=== PATIENT | male | born 1965 | race Hispanic/Latino ===

== ENCOUNTER 2018-04-28 08:56 | Inpatient (IN) | payer BC ==
--- NOTE | 2018-04-28 09:42 | ED PDOC ---
Arrival/HPI - General Chief Complaint: Psychiatric Evaluation Time Seen by Provider: 04/28/18 09:22 Historian: Patient - History of Present Illness Narrative History of Present Illness (Text): 04/28/18 09:39 52yo male with pmhx of depression and anxiety in ED for ED for ECT. Patient states he was advised to come to ED for ECT, when he was discharged form [facility] on April 22. He admits to SI, states he is always suicidal. He notes that he is complaint with his antidepressants. Denies hallucination and SI. Denies any somatic complaint. Past Medical History - Provider Review Nursing Documentation Reviewed: Yes - Cardiac Hx Cardiac Disorders: Yes Hx Hypertension: Yes - Endocrine/Metabolic Hx Endocrine Disorders: Yes Hx Diabetes Mellitus Type 2: Yes - Psychiatric Hx Psychophysiologic Disorder: Yes Hx Anxiety: Yes Hx Depression: Yes Hx Substance Use: No Family/Social History - Physician Review Nursing Documentation Reviewed: Yes Family/Social History: Unknown Family HX Smoking Status: Heavy Smoker > 10 Cigarettes Daily Hx Alcohol Use: Yes Frequency of alcohol use: Socially Hx Substance Use: No Allergies/Home Meds Allergies/Adverse Reactions: Allergies amitriptyline [From Elavil] Adverse Reaction (Verified 04/28/18 19:07) ITCHING Home Medications: Home Meds Medication Instructions Recorded Confirmed Atenolol 50 PO 04/28/18 GlipiZIDE [Glipizide] 10 mg PO DAILY 04/28/18 04/28/18 MetFORMIN [glucOPHAGE] 1,000 mg PO BID 04/28/18 04/28/18 Pantoprazole Sodium [Protonix] 40 mg PO DAILY 04/28/18 04/28/18 QUEtiapine [SEROquel] 300 mg PO HS 04/28/18 04/28/18 Ziprasidone [Geodon] 60 mg PO BID 04/28/18 04/28/18 Review of Systems - Physician Review All systems were reviewed & negative as marked: Yes - Review of Systems Constitutional: Normal Eyes: Normal ENT: Normal Respiratory: Normal Cardiovascular: Normal Gastrointestinal: Normal Genitourinary Male: Normal Musculoskeletal: Normal Skin: Normal Neurological: Normal Endocrine: Normal Hemo/Lymphatic: Normal Psychiatric: Depression, Suicidal Ideation Physical Exam Vital Signs Reviewed: Yes Vital Signs Temp Pulse Resp BP Pulse Ox 04/28/18 09:15 97.8 F 98 H 16 125/87 94 L Temperature: Afebrile Blood Pressure: Normal Pulse: Regular Respiratory Rate: Normal Appearance: Positive for: Well-Appearing, Non-Toxic, Comfortable Pain Distress: None Mental Status: Positive for: Alert and Oriented X 3 - Systems Exam Head: Present: Atraumatic, Normocephalic Pupils: Present: PERRL Extroacular Muscles: Present: EOMI Conjunctiva: Present: Normal Mouth: Present: Moist Mucous Membranes Neck: Present: Normal Range of Motion Respiratory/Chest: Present: Clear to Auscultation, Good Air Exchange. No: Respiratory Distress, Accessory Muscle Use Cardiovascular: Present: Regular Rate and Rhythm, Normal S1, S2. No: Murmurs Abdomen: No: Tenderness, Distention, Peritoneal Signs Back: Present: Normal Inspection Upper Extremity: Present: Normal Inspection. No: Cyanosis, Edema Lower Extremity: Present: Normal Inspection. No: Edema Neurological: Present: GCS=15, CN II-XII Intact, Speech Normal Skin: Present: Warm, Dry, Normal Color. No: Rashes Psychiatric: Present: Alert, Oriented x 3, Normal Insight, Normal Concentration Medical Decision Making ED Course and Treatment: 04/28/18 21:08 Pt was seen in ED for stated history Lab was reviewed and he was medically cleared for psychiatric evaluation He was seen in ED by STANTON Camarena and was admitted to Dr. Claudio 's service for Major depression Disposition/Present on Arrival - Present on Arrival Any Indicators Present on Arrival: No History of DVT/PE: No History of Uncontrolled Diabetes: No Urinary Catheter: No History of Decub. Ulcer: No History Surgical Site Infection Following: None - Disposition Have Diagnosis and Disposition been Completed?: Yes Diagnosis: Major depression Disposition: HOSPITALIZED Disposition Time: 11:40 Patient Plan: Admission Patient Problems: Current Active Problems Problem Status Onset Major depression Acute Condition: STABLE
[2018-04-28 09:56] LABS: BASO # 0.01 K/mm3 (0.0-2.0); BASO % 0.1 % (0.0-3.0); EOS # 0.1 (0.0-0.7); EOS % 0.8 % (1.5-5.0); GRAN # 5.58 (1.4-6.5); GRAN % 66.8 % (50.0-68.0); HEMOGLOBIN 14.6 g/dL (14.0-18.0); LYMPH # 2.3 (1.2-3.4); LYMPH % 27.5 % (22.0-35.0); MEAN CELL VOLUME 90.4 fl (80.0-105.0); MEAN CORPUSCULAR HEMOGLOBIN 30.5 pg (25.0-35.0); MEAN CORPUSCULAR HGB CONC 33.7 g/dl (31.0-37.0); MEAN PLATELET VOLUME 9.4 fl (7.0-11.0); MONO # 0.4 (0.1-0.6); MONO % 4.8 % (1.0-6.0); RBC 4.79 10^6/uL (3.5-6.1); RED CELL DISTRIBUTION WIDTH 14.1 % (11.5-14.5); WHITE BLOOD COUNT 8.4 10^3/ul (4.5-11.0)
[2018-04-28 10:02] LABS: ACETAMINOPHEN < 10.0 ug/ml (10.0-20.0); ALB/GLOB RATIO 1.6 (1.1-1.8); ALBUMIN 4.5 g/dL (3.0-4.8); ALT/SGPT 55 U/L (7-56); AST/SGOT 35 U/L (17-59); BLOOD UREA NITROGEN 18 mg/dL (7-21); CALCIUM 9.1 mg/dL (8.4-10.5); GFR NON-AFRICAN AMERICAN > 60; SALICYLATE < 1 mg/dL (2.0-20.0)
[2018-04-28 10:30] LABS: PH,URINE 5.5 (4.7-8.0); URINE BILIRUBIN NEGATIVE (NEGATIVE); URINE BLOOD NEGATIVE (NEGATIVE); URINE GLUCOSE (UA) 500 mg/dL (NEGATIVE); URINE LEUKOCYTE ESTERASE NEGATIVE Leu/uL (NEGATIVE); URINE PROTEIN TRACE mg/dL (<30 mg/dL); URINE UROBILINOGEN 0.2 E.U./dL (<1 E.U./dL)
[2018-04-28 10:46] LABS: URINE APPEARANCE CLEAR (CLEAR); URINE COLOR YELLOW (YELLOW)
[2018-04-28 10:53] LABS: BARBITURATES, UR NEGATIVE (NEGATIVE); BENZODIAZEPINES, UR POSITIVE (NEGATIVE); OPIATES, UR NEGATIVE (NEGATIVE); PHENCYCLIDINE, UR NEGATIVE (NEGATIVE)
[2018-04-28 11:12] LABS: URINE BACTERIA MOD (NEG); URINE RBC 0 - 2 /hpf (0-2)
--- NOTE | 2018-04-28 12:21 | RAD ---
Date of service: 04/28/2018 HISTORY: admission COMPARISON: No prior. FINDINGS: LUNGS: No active pulmonary disease. PLEURA: No significant pleural effusion identified, no pneumothorax apparent. CARDIOVASCULAR: Normal. OSSEOUS STRUCTURES: No significant abnormalities. VISUALIZED UPPER ABDOMEN: Normal. OTHER FINDINGS: None. IMPRESSION: No active disease.
[2018-04-28] MEDS ORDERED: Alum-Mag Hydrox-Simethicone Susp (30 mL) PO PRN (15:30)
--- NOTE | 2018-04-28 18:36 | CARD ---
APPROVED REPORT Date of service: 04/28/2018 EKG Measurement Heart [id number] <Conclusion> Normal sinus rhythm Rightward axis Low voltage QRS Borderline ECG
--- NOTE | 2018-04-28 19:00 | PN ---
DATE: 04/28/2018 CLINICAL NOTE SUBJECTIVE: The patient is in the Behavioral Care Unit. The patient is in room 518, bed 1. The patient was admitted today. Diagnosis is depression. The patient has been treated for depression for the last 5 years. He says he has been retired from . His past history is significant that he has history of diabetes, hypertension. The patient has history of alcoholism. He drinks a pint of vodka everyday. He smokes also. His past history includes ventral hernia, right side of the lower abdomen. The patient has history of gastritis. He says that he has been on Protonix in the past. His medication list consists of Ativan 1 mg every 6 hours. The patient is on magnesium hydroxide for constipation. He gets Seroquel 100 mg at night. The patient is on thiamine and vitamin D1. His lab work, the blood sugar is 235. His magnesium of 1.5, it is low. The patient's urine, there is evidence of sugar in the urine. PHYSICAL EXAMINATION: HEENT: The patient's head is normocephalic. GENERAL: Seemed to be pleasant. NECK: Thyroid is not enlarged clinically. HEART: Normal sinus rhythm. S1 and S2 present. LUNGS: Trachea central. Breath sounds vesicular. No adventitious sounds heard. ABDOMEN: Soft, distended. Liver and spleen not clinically palpable. SIGNING AGENT: No focal deficits are noted. LABORATORY DATA: The patient's blood work, the hemoglobin is 14.6. His differential is normal. Chemistry: The patient's sugar is 235. His magnesium of 1.5 which is low. GFR is within normal limits. He has pending x-ray of the chest. The patient's EKG shows nonspecific ST-T wave changes. At this time, we will cover the patient with insulin and check his lipid levels and monitor his sugar and also his blood pressure. At this point, his blood pressure seems to be within normal range, but since the patient is a diabetic, he needs to take an KAYKAY inhibitor or ARB. We will place the patient on a medication and follow up. Kenyon Decker MD [facility] # [id number] MTDD
--- NOTE | 2018-04-28 19:07 | PCM.BM ---
<Preethi Reyes - Last Filed: 04/28/18 19:04> Treatment Plan Problems - Problems identified on initial assessmt INEFFECTIVE INDV COPING Date Initiated: 04/28/18 Time Initiated: 19:00 Assessment reference: NA Status: Active Priority: 1 HOPELESS/HELPLESS Date Initiated: 04/28/18 Time Initiated: 19:00 Assessment reference: NA Status: Active Priority: 2 FEELING WORTHLESS Date Initiated: 04/28/18 Time Initiated: 19:00 Assessment reference: NA Status: Active Priority: 3 ALTERATION IN SLEEP Date Initiated: 04/28/18 Time Initiated: 19:00 Assessment reference: NA Status: Active Priority: 4 KNOWLEDGE DEFICIT ALCOHOL USE Date Initiated: 04/28/18 Time Initiated: 19:00 Assessment reference: NA Status: Active Priority: 5 Treatment assets and liabiliti Patient Assests: cooperative, ADL independent, good support system, cognitively intact Patient Liabilities: substance abuse - Milieu Protocol Maintain good personal hygiene: every shift Encourage regular showers, every shift Remind patient to perform daily oral care, every shift Assist patient to perform ADL's Maintain personal safety: every other day Educate patient to report safety concerns to staff, every other day Monitor environment for contraband/sharps Medication safety: Monitor for expected outcome, potential side effects: every other day, Assess barriers to learning: every other day, Assess readiness for medication education: every other day Discharge/Continuing Care - Education Needs Education Needs: Patient Medication, Patient Diagnosis/Disease Process, Patient Coping Skills, Patient Community resources, Patient Activities of Daily Living, Patient Nutrition, Patient Uses of Medical Equipment, Patient Health Practices/Safety, Patient Personal Hygiene/Grooming, Patient Aftercare Safety Plan - Discharge Discharge Criteria: Tolerates medication w/o severe side effects, Free of agitation, Normal sleep pattern, Ability to care for self, No longer exhibiting s/s of withdrawal, Reduction of target symptoms Discharge to:: Home <Rita Hoffman - Last Filed: 04/30/18 15:37> Family Contact Family involvement: Family/SO is involved Family contact: Patient agrees to contact Family contact name: Leticia Gonzalez() Family contacted how many times per week?: 2
[2018-04-28] MEDS: Insulin Detemir 100 units/ml Vial (Levemir) SC SCH (21:26)
[2018-04-28] MEDS: Insulin Reg-LOW-Coverage SC SCH (21:26)
[2018-04-29] MEDS: Insulin Reg-LOW-Coverage SC SCH ×4 (08:20→21:16)
--- NOTE | 2018-04-29 08:55 | PN ---
DATE: 04/28/2018 SUBJECTIVE: The patient is in the Behavioral Care Unit under the care of the behavioral care physician, Dr. Shanon Lazo. The patient was admitted with depression and was seen this morning. He seemed to be comfortable. He does not feel very disturbed at this moment. The patient is waiting to have ECT evaluation and treatment. PHYSICAL EXAMINATION: VITAL SIGNS: This morning, the patient's pulse is 77, blood pressure 150/97, respirations are 20, the patient's temperature 97.3. HEENT: The patient's examination of the head is normocephalic. LUNGS: Clear. HEART: Normal sinus rhythm. S1, S2 present. ABDOMEN: Soft. Liver and spleen not palpable. No tenderness. Distention is present. COST AND RISK ANALYSIS MANAGER: No focal deficits are noted. MEDICATIONS: The patient's medications are placed. At this time, the patient is on metformin 1000 mg b.i.d., glipizide 10 mg daily, insulin coverage with Levemir 40 units at night. The patient gets insulin coverage four times a day for elevated blood sugar. The patient is on Ativan 1 mg every 6 hours. The patient is getting magnesium oxide 400 mg b.i.d. because he had low magnesium level in the blood. The patient is also getting Seroquel 100 mg at night. Diet is 2 g sodium diabetic diet. The patient also gets atenolol 50 mg daily. LABORATORY DATA: The blood work done yesterday in the lab, the CBC was within normal range. The patient's chemistry, the blood sugar was elevated. Magnesium of 1.5. ASSESSMENT AND PLAN: We will continue current medical management and we will wait for the Behavioral Care Unit physician to schedule the patient for ECT. Kenyon Decker MD [facility]RA[facility]
[2018-04-29] MEDS: Multivitamin Therapeutic Tab PO SCH (09:12)
[2018-04-29] MEDS: Magnesium Oxide 400 mg Tab UD PO SCH (09:12)
[2018-04-29] MEDS: Pantoprazole 40 mg EC Tab PO SCH (09:13)
[2018-04-29] MEDS: Insulin Detemir 100 units/ml Vial (Levemir) SC SCH (21:16)
[2018-04-30] MEDS: Magnesium Oxide 400 mg Tab UD PO SCH (08:39)
[2018-04-30] MEDS: Pantoprazole 40 mg EC Tab PO SCH (08:39)
[2018-04-30] MEDS: Insulin Reg-LOW-Coverage SC SCH ×4 (08:40→22:17)
[2018-04-30] MEDS: Multivitamin Therapeutic Tab PO SCH (08:40)
--- NOTE | 2018-04-30 11:07 | PN ---
DATE: 04/30/2018 SUBJECTIVE: The patient is in Behavioral Care Unit room 518, bed 1. He was admitted with depression. He is being managed medically for diabetes and hypertension and for depression, the patient is being monitored and treated by the Behavioral Care physician. The patient has been scheduled for ECT, but the date is not planned yet. PHYSICAL EXAMINATION: VITAL SIGNS: The pulse is 76, blood pressure 110/70, respirations are 20. The patient's O2 sat is 98% on oxygen on room air. HEENT: The patient's head is normocephalic. NECK: The thyroid is not enlarged. JVP is flat. HEART: Normal sinus rhythm. S1, S2 present. LUNGS: Trachea central. Breath sounds vesicular, no adventitious sounds. ABDOMEN: Soft, obesity present. EDGE GLUE MACHINE TENDER: The patient is conscious/well oriented. No focal neurologic deficits are noted. The patient is able to ambulate. His cerebellar functions are within normal limits. LABORATORY DATA: The patient's blood work shows white count of 8000, otherwise the peripheral smear was 9000. Chemistry: The patient's blood sugar today is 199. MEDICATIONS: His list of medications consist of Ativan 4 times a day. The patient gets folic acid, metformin, glipizide, insulin coverage, magnesium oxide. The patient is on Seroquel, atenolol and multivitamin. His diet is heart-healthy diabetic diet. ASSESSMENT: The patient's condition is stable, though he has acute depression. His EKG shows normal sinus rhythm with nonspecific ST-T wave changes, low voltage QRS. The patient's chest x-ray is clear. PLAN: The patient is cleared for ECT when it is planned for the time according to the Behavioral Care Unit. Kenyon Decker MD MTDD
--- NOTE | 2018-04-30 16:25 | PCM.PYCHPN ---
Psychiatric Progress Note - Psychiatric Progress Note Patient seen today, length of contact: 30 minutes Patient Chief Complaint: "I need to have ECT, I came here for that" Problems Identified/Issues Discussed: Suicide/ homicide prevention, past psychiatric h/o, current psychiatric symptoms, medical problems, risk/benefits and alternatives of medications, medications compliance, coping strategies, substance abuse h/o, relapse prevention, importance of follow up with psychiatrist and therapist, discharge plan. Medical Problems: see HPI Diagnostic Results: 04/28/18 09:30 04/28/18 09:30 Lab Results 04/30/18 07:22: POC Glucose (mg/dL) 172 H 04/29/18 21:09: POC Glucose (mg/dL) 199 H 04/29/18 16:29: POC Glucose (mg/dL) 215 H 04/29/18 11:05: POC Glucose (mg/dL) 221 H 04/29/18 07:19: POC Glucose (mg/dL) 140 H 04/28/18 21:13: POC Glucose (mg/dL) 263 H 04/28/18 16:33: POC Glucose (mg/dL) 224 H 04/28/18 10:20: Urine Opiates Screen Negative, Urine Methadone Screen Negative, Ur Barbiturates Screen Negative, Ur Phencyclidine Scrn Negative, Ur Amphetamines Screen Negative, U Benzodiazepines Scrn Positive H, U Oth Cocaine Metabols Negative, U Cannabinoids Screen Negative 04/28/18 10:20: Urine Color Yellow, Urine Appearance Clear, Urine pH 5.5, Ur Specific [place] >= 1.030, Urine Protein Trace H, Urine Glucose (UA) 500 H, Urine Ketones 15 H, Urine Blood Negative, Urine Nitrate Negative, Urine Bilirubin Negative, Urine Urobilinogen 0.2, Ur Leukocyte Esterase Negative, Urine RBC 0 - 2, Urine WBC 1 - 3, Urine Bacteria Mod 04/28/18 09:30: Alcohol, Quantitative 134 H 04/28/18 09:30: Salicylates < 1 L, Acetaminophen < 10.0 L 04/28/18 09:30: Sodium 139, Potassium 4.0, Chloride 99, Carbon Dioxide 25, Anion Gap 19, BUN 18, Creatinine 0.9, Est GFR ( Amer) > 60, Est GFR (Non-Af Amer) > 60, Random Glucose 235 H, Calcium 9.1, Magnesium 1.5 L, Total Bilirubin 0.3, AST 35, ALT 55, Alkaline Phosphatase 74, Total Protein 7.3, Albumin 4.5, Globulin 2.8, Albumin/Globulin Ratio 1.6 04/28/18 09:30: WBC 8.4, RBC 4.79, Hgb 14.6, Hct 43.3, MCV 90.4, MCH 30.5, MCHC 33.7, RDW 14.1, Plt Count 309, MPV 9.4, Gran % 66.8, Lymph % (Auto) 27.5, [place] % (Auto) 4.8, Eos % (Auto) 0.8 L, Baso % (Auto) 0.1, Gran # 5.58, Lymph # (Auto) 2.3, [place] # (Auto) 0.4, Eos # (Auto) 0.1, Baso # (Auto) 0.01 Vital Signs Temp Pulse Resp BP Pulse Ox 04/30/18 07:29 97.7 F 76 20 111/69 04/29/18 16:00 74 139/92 H 04/29/18 09:13 77 150/97 H 04/29/18 09:11 77 150/97 H 04/29/18 07:00 97.3 F L 77 20 150/97 H 04/28/18 15:42 17 04/28/18 13:45 96 04/28/18 13:40 90 17 128/80 96 04/28/18 12:53 88 16 125/78 96 04/28/18 11:27 90 16 127/80 96 04/28/18 10:00 94 H 17 126/85 96 04/28/18 09:15 97.8 F 98 H 16 125/87 94 L DSM 5 Symptoms Update: shortly pt is 25yo male with reported h/o schizoaffective disorder, bipolar type, h/o alcohol use disorder, h/o multiple previous psychiatric admissions (most recent was [facility] in 04/22/2018, [place] [facility] [place] worsening of his depression, suicidal ideation, pt made a request for ECT treatment, prior to this admission pt had a plan to overdose on pills, pt's called [facility] and find out that ECT treatment available in this Hospital. pt was seen at the treatment team meeting, pt presented with poor personal hygiene, acceptable ADLs. pt was seen and examined, previous record reviewed, pt's med list discussed with pt. pt was recently d/c from the [facility] on 04/22/2018, pt reported not feeling any better, pt reported to feel depressed and "always feeling suicidal". Denies any homicidal ideation or A/V/H. Poor sleep, fair appetite. Pt reported that he was "not drinking that much", at the same time alcohol level was elevated in ED. pt was prescribed the following meds: Atenolol 10 mg PO BID 03/30/18 Lantus 45 units SQ DAILY 03/30/18 MetFORMIN 1,000 mg PO BID 03/30/18 Simvastatin 40 mg PO DAILY 03/30/18 QUEtiapine [Seroquel] 300 mg PO HS #30 tab 04/03/18 Ziprasidone [Geodon Cap] 80 mg PO BID #60 cap 04/03/18 pt reported being compliant wiht meds. pt tavares multiple psych admissions to [facility], h/o of suicidal attempts most recent was prior [facility] Hospitalization. pt contracted for safety. reported h/o smoking about 1-1/2 pack a day, refused nicotine patch, but offered PRN. Impression: as per h/o: schizoaffective, bipolar type r/o substance induced mood disorder h/o alcohol abuse/dependence Medication Change: Yes (seroquel increased) Medical Record Reviewed: Yes Consults ordered or reviewed: medical team evaluated pt Mental Status Examination - Cognitive Function Orientation: Person, Place, Situation Memory: Intact Attention: Poor Concentration: Poor Association: Loose Fund of Knowledge: Poor - Mood Mood: Depressed, Anxious - Affect Affect: Constricted - Speech Speech: Appropriate - Formal Thought Process Formal Thought Process: No Impairment - Suicidal Ideation Suicidal Ideation: Yes Plan: no intent, pt contracted for safety - Homicidal Ideation Homicidal Ideation: No Goal/Treatment Plan - Goal/Treatment Plan Need for Continued Stay: Remain at risks for inpatient hospitalization, Severe depression anxiety, Discharge may exacerbated symptoms, Failed transitioning, Severe functional impairment Progress Toward Problem(s) and Goals/Treatment Plan: Milieu/structure/supportive therapy Medical consult appreciated, see medical team note for more detailed info SW consultation for discharge plan and social issues Med management seroquel resumed ativan 1mg po qid scheduled MVI/thiamine/folic acid Family involvement Follow up on labs Will monitor closely Pt was educated about risk/benefits and alternatives of medications, coping strategies (safety plan, suicide prevention), relapse prevention, importance of follow up with psychiatrist and therapist, stay away from drugs/alcohol/smoking Estimated Date of D/C: 05/05/18
[2018-04-30] MEDS: Insulin Detemir 100 units/ml Vial (Levemir) SC SCH (21:41)
--- NOTE | 2018-05-01 08:36 | PN ---
DATE: 05/01/2018 SUBJECTIVE: The patient is in the Behavioral Care Unit. The patient was admitted with depression, pending ECT treatment. The patient has past history of diabetes, hypertension and also chronic alcoholism. According to his story, he says he drinks a pint of vodka everyday. PHYSICAL EXAMINATION: GENERAL: This morning, he is awake. He says that he does not sleep, but according to the nurse, the patient sleeps pretty well. VITAL SIGNS: Pulse is 77, blood pressure 105/54, respirations are 20, O2 sat is 98% on room air. HEENT: Examination of the head is normocephalic. NECK: The thyroid is not enlarged. Carotid pulses are present. LUNGS: Trachea central. Breath sounds vesicular. No adventitious sounds. HEART: Normal sinus rhythm. S1 and S2 present. ABDOMEN: Soft. Liver and spleen not palpable. COMMUNITY HEALTH AGENT: He has no focal neurological deficit. MEDICATIONS: His list of medications consist of Ativan, folic acid, metformin, glipizide, insulin coverage, magnesium oxide. The patient is on pantoprazole, Seroquel and Tenormin. LABORATORY DATA: His blood work, the patient's blood sugar was 225 and he is on insulin coverage for elevated blood sugar, but he is on multiple hypocalcemic agents and a diabetic diet. ASSESSMENT AND PLAN: We will continue current management. We will follow up. Kenyon Decker MD MTDMarion
[2018-05-01] MEDS: Insulin Reg-LOW-Coverage SC SCH ×4 (08:55→22:18)
[2018-05-01] MEDS: Multivitamin Therapeutic Tab PO SCH (08:58)
[2018-05-01] MEDS: Pantoprazole 40 mg EC Tab PO SCH (08:59)
[2018-05-01] MEDS: Magnesium Oxide 400 mg Tab UD PO SCH (09:01)
[2018-05-01 09:46] LABS: BLOOD UREA NITROGEN 15 mg/dL (7-21); CALCIUM 9.4 mg/dL (8.4-10.5); GFR NON-AFRICAN AMERICAN > 60
--- NOTE | 2018-05-01 10:38 | HP ---
HISTORY OF PRESENT ILLNESS: The patient is a 52-year-old white male with a reported past history of depression and anxiety who was transferred from [facility] for consideration of ECT. He had been discharged from [facility] on 04/22/2018. The patient indicated that he is presently suicidal as he is always suicidal, but is somewhat vague about a plan. It was observed that he is compliant with his antidepressants. The patient's medical history is positive for diabetes. He has been maintained on glipizide 10 mg daily, metformin 1000 mg b.i.d., also Protonix 40 mg daily, atenolol 50 mg daily, Seroquel 300 mg at bedtime and Geodon 60 mg b.i.d. The patient does appear to be alert, oriented, slightly anxious, soft spoken, depressed, not psychotic. He does express feelings of being lonely and not having control over his life and avoidant of people. The patient does indicate that he drinks alcohol for a long time. His treatment for this is unsure. The patient indicates that his father is a source of support to him. The patient indicated that he has been under psychiatric care for his depression for 5 years. His past medical history is significant for diabetes, hypertension and alcoholism. He indicated that he drank a pint of vodka every day for an extended period of time and has smoked. He has also had a history of an abdominal ventral hernia and a history of gastritis. His CBC and differential were within normal limits. A urine toxicology screen was positive for benzodiazepines, for a blood alcohol level of 134 mg percent. Urinalysis showed trace protein, 500 urine glucose, 15 urine ketones. A biochemical profile shows elevated glucose of 215 mg percent. DIAGNOSES: Alcohol use disorder; depression, not otherwise specified, possibly secondary to chronic alcohol use. The patient apparently has been admitted for consideration of ECT. Review of systems was normal for 10 systems. PHYSICAL EXAMINATION: HEENT: The patient was normocephalic. Pupils equal, round and reactive to light and accommodation. Mouth moist, no masses, no exudates. NECK: Supple, no jugular vein distention. RESPIRATORY: Clear to auscultation and percussion. Good air exchange. CARDIOVASCULAR: Heart, regular rate and rhythm. S1/S2. No murmurs. No gallops. ABDOMEN: Soft. No organomegaly. No tenderness. GENITALIA: Deferred. EXTREMITIES: Symmetric, pedal pulses present. NEUROLOGIC: Cranial nerves II to XII grossly intact, speech normal. SKIN: Warm and dry. IMPRESSION: The patient for treatment of depression. Mckinley Bhandari MD/ PhD
--- NOTE | 2018-05-01 16:18 | PCM.PYCHPN ---
Psychiatric Progress Note - Psychiatric Progress Note Patient seen today, length of contact: 30 minutes Patient Chief Complaint: "I need to have ECT, I came here for that, I am very hopeless" Problems Identified/Issues Discussed: Suicide/ homicide prevention, past psychiatric h/o, current psychiatric symptoms, medical problems, risk/benefits and alternatives of medications, medications compliance, coping strategies, substance abuse h/o, relapse prevention, importance of follow up with psychiatrist and therapist, discharge plan. Medical Problems: see HPI Diagnostic Results: 04/28/18 09:30 04/28/18 09:30 Lab Results 04/30/18 07:22: POC Glucose (mg/dL) 172 H 04/29/18 21:09: POC Glucose (mg/dL) 199 H 04/29/18 16:29: POC Glucose (mg/dL) 215 H 04/29/18 11:05: POC Glucose (mg/dL) 221 H 04/29/18 07:19: POC Glucose (mg/dL) 140 H 04/28/18 21:13: POC Glucose (mg/dL) 263 H 04/28/18 16:33: POC Glucose (mg/dL) 224 H 04/28/18 10:20: Urine Opiates Screen Negative, Urine Methadone Screen Negative, Ur Barbiturates Screen Negative, Ur Phencyclidine Scrn Negative, Ur Amphetamines Screen Negative, U Benzodiazepines Scrn Positive H, U Oth Cocaine Metabols Negative, U Cannabinoids Screen Negative 04/28/18 10:20: Urine Color Yellow, Urine Appearance Clear, Urine pH 5.5, Ur Specific [place] >= 1.030, Urine Protein Trace H, Urine Glucose (UA) 500 H, Urine Ketones 15 H, Urine Blood Negative, Urine Nitrate Negative, Urine Bilirubin Negative, Urine Urobilinogen 0.2, Ur Leukocyte Esterase Negative, Urine RBC 0 - 2, Urine WBC 1 - 3, Urine Bacteria Mod 04/28/18 09:30: Alcohol, Quantitative 134 H 04/28/18 09:30: Salicylates < 1 L, Acetaminophen < 10.0 L 04/28/18 09:30: Sodium 139, Potassium 4.0, Chloride 99, Carbon Dioxide 25, Anion Gap 19, BUN 18, Creatinine 0.9, Est GFR ( Amer) > 60, Est GFR (Non-Af Amer) > 60, Random Glucose 235 H, Calcium 9.1, Magnesium 1.5 L, Total Bilirubin 0.3, AST 35, ALT 55, Alkaline Phosphatase 74, Total Protein 7.3, Albumin 4.5, Globulin 2.8, Albumin/Globulin Ratio 1.6 04/28/18 09:30: WBC 8.4, RBC 4.79, Hgb 14.6, Hct 43.3, MCV 90.4, MCH 30.5, MCHC 33.7, RDW 14.1, Plt Count 309, MPV 9.4, Gran % 66.8, Lymph % (Auto) 27.5, [place] % (Auto) 4.8, Eos % (Auto) 0.8 L, Baso % (Auto) 0.1, Gran # 5.58, Lymph # (Auto) 2.3, [place] # (Auto) 0.4, Eos # (Auto) 0.1, Baso # (Auto) 0.01 Vital Signs Temp Pulse Resp BP Pulse Ox 04/30/18 07:29 97.7 F 76 20 111/69 04/29/18 16:00 74 139/92 H 04/29/18 09:13 77 150/97 H 04/29/18 09:11 77 150/97 H 04/29/18 07:00 97.3 F L 77 20 150/97 H 04/28/18 15:42 17 04/28/18 13:45 96 04/28/18 13:40 90 17 128/80 96 04/28/18 12:53 88 16 125/78 96 04/28/18 11:27 90 16 127/80 96 04/28/18 10:00 94 H 17 126/85 96 04/28/18 09:15 97.8 F 98 H 16 125/87 94 L DSM 5 Symptoms Update: shortly pt is 25yo male with reported h/o schizoaffective disorder, bipolar type, h/o alcohol use disorder, h/o multiple previous psychiatric admissions (most recent was [facility] in 04/22/2018, pt came to the [facility] c/o worsening of his depression, suicidal ideation, pt made a request for ECT treatment, prior to this admission pt had a plan to overdose on pills, pt's called [facility] and find out that ECT treatment available in this Hospital. pt was seen in his room, patient presented to be irritable, annoyed, patient was asked about ECT treatment, off note ECT machine needed to be replaced by the [employer] due to inability to save the record. pt reported to be depressed and hopeless. Patient reported previous good response on Celexa, willing to resume that medication. pt presented with poor personal hygiene, acceptable ADLs. pt tavares multiple psych admissions to [facility], h/o of suicidal attempts most recent was prior [facility]. pt contracted for safety. As per staff, patient is self isolating, depressed, irritable and paranoid, but no agitation or aggression. Impression: as per h/o: schizoaffective, bipolar type r/o substance induced mood disorder h/o alcohol abuse/dependence Medication Change: Yes (seroquel increased, ativan decreased) Medical Record Reviewed: Yes Consults ordered or reviewed: medical team evaluated pt pulmonology evaluated patient, patient needs to be on nebulizer as well as CPAP machine Mental Status Examination - Cognitive Function Orientation: Person, Place, Situation Memory: Intact Attention: Poor Concentration: Poor Association: Loose Fund of Knowledge: Poor - Mood Mood: Depressed, Anxious - Affect Affect: Constricted - Speech Speech: Appropriate - Formal Thought Process Formal Thought Process: No Impairment - Suicidal Ideation Suicidal Ideation: Yes - Homicidal Ideation Homicidal Ideation: No Goal/Treatment Plan - Goal/Treatment Plan Need for Continued Stay: Remain at risks for inpatient hospitalization, Severe depression anxiety, Discharge may exacerbated symptoms, Failed transitioning, Severe functional impairment Progress Toward Problem(s) and Goals/Treatment Plan: Milieu/structure/supportive therapy Medical consult appreciated, see medical team note for more detailed info SW consultation for discharge plan and social issues Med management seroquel resumed ativan 1mg po tid scheduled, ith the plan to wean it off Celexa was started 10 mg daily for depression and anxiety Possible ECT treatment next week MVI/thiamine/folic acid Family involvement Follow up on labs Will monitor closely Pt was educated about risk/benefits and alternatives of medications, coping strategies (safety plan, suicide prevention), relapse prevention, importance of follow up with psychiatrist and therapist, stay away from drugs/alcohol/smoking Estimated Date of D/C: 05/05/18
[2018-05-01] MEDS ORDERED: Albuterol HFA 90 mcg/actuation (8 g) IH PRN (21:18)
[2018-05-01] MEDS: Insulin Detemir 100 units/ml Vial (Levemir) SC SCH (22:18)
[2018-05-02] MEDS: Fluticasone-Salmeterol 500-50mcg Diskus INH SCH ×2 (08:00→18:26)
[2018-05-02] MEDS: Insulin Reg-LOW-Coverage SC SCH ×4 (08:29→21:56)
--- NOTE | 2018-05-02 08:40 | CON ---
DATE: 05/01/2018 REFERRING PHYSICIAN: Dr. Claudio. REASON FOR CONSULTATION: Chronic obstructive lung disease and obstructive sleep apnea syndrome. HISTORY OF PRESENT ILLNESS: This is a 52-year-old gentleman with past medical history of depression/anxiety disorder. He claimed he is suicidal. Denied any hallucination. Does have some cough, active smoker. Claimed that he has sleep apnea syndrome, has CPAP at home, does not know exact pressures, has a loud snoring, daytime sleepy and tired. PAST MEDICAL HISTORY: Major depression/anxiety disorder, chronic lung disease, sleep apnea syndrome, obesity, hypertension, diabetes. FAMILY HISTORY: No significant cardiopulmonary disease reported. SOCIAL HISTORY: Positive history of smoking. Does drink alcohol excessively. No substance abuse. ALLERGIES: AMITRIPTYLINE. MEDICATIONS: He is on lorazepam 1 mg three times a day, Celexa 10 mg daily, folic acid 1 mg daily, metformin 1000 mg twice a day, glipizide 10 mg daily, Levemir 40 units subcu at bedtime, Maalox 30 mg daily p.r.n., Mag oxide 400 mg daily, Protonix 40 mg daily, Seroquel 300 mg at bedtime, atenolol 50 mg daily, multivitamins daily, Zestril 2.5 mg daily. REVIEW OF SYSTEMS: No headache. No rhinitis. Does have some cough and shortness of breath with exertion. No chest pain. No nausea, no vomiting, no diarrhea, leg pain or leg swelling. Admits to have snoring, daytime sleepy and tired. PHYSICAL EXAMINATION: GENERAL: Sitting up in a chair, in no acute distress. VITAL SIGNS: Temperature is 98, heart rate 77, respiratory rate is 20, blood pressure 135/91. HEENT: Moist mucous membranes. Small oral cavity. Edentulous. Mallampati score is 4. NECK: Short, thick neck. LUNGS: Have scattered rhonchi, prolonged expiratory phase. HEART: S1 and S2. ABDOMEN: Soft, nontender, nondistended. EXTREMITIES: No edema. NEUROLOGIC: Awake and follows simple commands. LABORATORY DATA: Shows hemoglobin 14.6, hematocrit 43.3, WBC 8.4, platelet is 309,000. Sodium 135, potassium 4.2, chloride 98, bicarbonate 28, BUN 15, creatinine 0.9, glucose 227, calcium is 9.4, magnesium 1.4. Had chest x-ray done in emergency room, shows no active pulmonary disease. IMPRESSION AND PLAN: Probably schizoaffective disorder, chronic obstructive lung disease, sleep apnea syndrome, morbid obesity. Case discussed with Dr. Claudio, spoke to nursing staff. We will place him on CPAP 8 cm while sleeping. We will add inhaled bronchodilator. Continue gastric prophylaxis. Urged him to stop smoking. Continue therapy. Thank you and we will follow with you. Braden Corley MD
[2018-05-02] MEDS: Multivitamin Therapeutic Tab PO SCH (08:41)
[2018-05-02] MEDS: Pantoprazole 40 mg EC Tab PO SCH (08:41)
[2018-05-02] MEDS: Magnesium Oxide 400 mg Tab UD PO SCH (08:41)
--- NOTE | 2018-05-02 09:57 | PCM.PYCHPN ---
Psychiatric Progress Note - Psychiatric Progress Note Patient seen today, length of contact: 30 minutes Problems Identified/Issues Discussed: I reviewed assessment and recent notes. Patient was interviewed at bedside. He is superficially cooperative, affect is constricted, mildly irritable but generally respectful. He reports continued depression, fatigue anxiety "always there". He is still agreeable to start ECT and remains aware of his current psychiatric medication regimen when reviewed this morning. Denies any side effects or new discomfort or pain. Staff note that patient can be isolative at times but has been more visible and attending groups. There were no behavioral issues overnight. Diagnostic Results: as per h/o: schizoaffective, bipolar type r/o substance induced mood disorder h/o alcohol abuse/dependence Medication Change: Yes (Ativan decreased to 1 mg AM/HS ) Medical Record Reviewed: Yes Mental Status Examination - Cognitive Function Orientation: Person, Place, Situation Memory: Intact Attention: WNL Concentration: Poor Association: Loose Fund of Knowledge: Poor - Mood Mood: Depressed, Anxious - Affect Affect: Constricted - Speech Speech: Appropriate - Formal Thought Process Formal Thought Process: No Impairment - Suicidal Ideation Suicidal Ideation: No - Homicidal Ideation Homicidal Ideation: No Goal/Treatment Plan - Goal/Treatment Plan Need for Continued Stay: Remain at risks for inpatient hospitalization, Severe depression anxiety, Discharge may exacerbated symptoms, Failed transitioning, Severe functional impairment Progress Toward Problem(s) and Goals/Treatment Plan: * c/w current tx and plan * Ativan taper to 1 mg AMHS today * No new lab results thus far this weekend * Vitals reviewed and noted below: Selected Entries 05/01/18 05/01/18 05/01/18 07:43 16:30 23:00 Temperature 97.9 F Pulse Rate 77 76 76 Respiratory 20 Rate Blood Pressure 105/54 L 135/91 H Estimated Date of D/C: 05/05/18
--- NOTE | 2018-05-02 13:04 | PN ---
DATE: 05/02/2018 SUBJECTIVE: Patient is seen in Behavioral Care Unit, [facility] in [place], room 518, bed 1. Patient admitted with depression, pending ECT treatment. Patient is on multiple medications. Patient is seen this morning. He seems to be lying in bed comfortably. He answers all the questions. He says he is tired. PHYSICAL EXAMINATION: VITAL SIGNS: Patient's pulse is 92, blood pressure 113/63, respirations are 19 per minute. HEENT: Patient's head is normocephalic. LUNGS: Clear. HEART: Normal sinus rhythm. S1, S2 present. ABDOMEN: Soft. Liver and spleen not palpable. CENTRAL NERVOUS SYSTEM: no focal deficits. LIST OF MEDICATIONS: Patient has Advair for chronic obstructive lung disease. Patient is on Ativan 1 mg three times a day. Patient is on Celexa 10 mg daily, Folic acid 1 mg daily. He is on metformin 1000 mg b.i.d., glipizide 10 mg daily, insulin coverage for elevated blood sugar. Patient is also on magnesium oxide, pantoprazole. Patient gets quetiapine which is Seroquel 300 mg at night, atenolol 50 mg daily, lisinopril 2.5 mg daily and thiamine 100 mg daily. He is also on Ventolin inhalation therapy. Kenyon Decker MD MTDMarion
[2018-05-02] MEDS: Insulin Detemir 100 units/ml Vial (Levemir) SC SCH (21:56)
--- NOTE | 2018-05-03 00:37 | PN ---
DATE: 05/02/2018 PULMONARY PROGRESS NOTE REFERRING PHYSICIAN: Shanon Lazo MD. SUBJECTIVE: The patient feels okay, tolerated CPAP last night. No overnight events reported. No headache, chest pain, nausea, vomiting, leg pain, leg swelling reported. PHYSICAL EXAMINATION: VITAL SIGNS: Temperature 98.1, pulse 92, respirations 19, blood pressure 113/63. GENERAL: No acute distress. HEENT: Moist mucous membrane. Crowded airway. Mallampati score is 4. NECK: Short, thick. No JVD. LUNGS: Scattered rhonchi. CARDIAC: S1 and S2. ABDOMEN: Soft, nontender. No organomegaly. EXTREMITIES: No edema. NEUROLOGICAL: Awake, alert. Follows commands. LABORATORY DATA: Laboratory results reviewed. No new data. Bedside glucose 199. No other data reviewed. MEDICATIONS: Reviewed. Ativan 1 mg in the morning and nighttime, citalopram 10 mg daily, Advair one puff every 12 hours. No other changes since yesterday. IMPRESSION AND PLAN: Schizoaffective disorder, chronic obstructive lung disease, sleep apnea syndrome, morbid obesity, suicidal ideation. Continue to encourage CPAP while sleeping, keep head elevated at 45-degrees, inhale bronchodilators, gastric prophylaxis, smoking cessation, therapy as tolerated. This patient was examined with Dr. Corley and discussed assessment and plan as described above. Thank you for this consult and we will follow with you. Shreya Mcdonald APN Braden Corley MD
[2018-05-03] MEDS: Magnesium Oxide 400 mg Tab UD PO SCH ×2 (08:32→16:22)
[2018-05-03] MEDS: Pantoprazole 40 mg EC Tab PO SCH (08:33)
[2018-05-03] MEDS: Insulin Reg-LOW-Coverage SC SCH ×4 (08:33→21:24)
[2018-05-03] MEDS: Multivitamin Therapeutic Tab PO SCH (08:33)
[2018-05-03] MEDS: Fluticasone-Salmeterol 500-50mcg Diskus INH SCH ×2 (08:36→17:28)
--- NOTE | 2018-05-03 09:44 | PCM.PYCHPN ---
Psychiatric Progress Note - Psychiatric Progress Note Patient seen today, length of contact: 30 minutes Problems Identified/Issues Discussed: I reviewed recent notes and patient was interviewed at bedside again this morning. He remains oriented x3 and superficially cooperative with interview q uestions. Utilized BIPAP last night and feels that he slept better. He reports continued depression, fatigue and anxiety. States that he always has these symptoms. Affect remains constricted, mildly irritable but generally respectful. Appearance is unkempt. Patient remains agreeable to start ECT. Denies any side effects or new discomfort or pain. Staff note that patient can be isolative at times but has been more visible on the unit. He attends and participates in groups. There were no behavioral issues over the weekend thus far. Diagnostic Results: as per h/o: schizoaffective, bipolar type r/o substance induced mood disorder h/o alcohol abuse/dependence Medication Change: Yes (Ativan decreased to 1 mg AM/HS on 05/02/18) Medical Record Reviewed: Yes Mental Status Examination - Cognitive Function Orientation: Person, Place, Situation Memory: Intact Attention: WNL Concentration: Poor Association: Loose Fund of Knowledge: Poor - Mood Mood: Depressed, Anxious - Affect Affect: Constricted - Speech Speech: Appropriate - Formal Thought Process Formal Thought Process: No Impairment - Suicidal Ideation Suicidal Ideation: No - Homicidal Ideation Homicidal Ideation: No Goal/Treatment Plan - Goal/Treatment Plan Need for Continued Stay: Remain at risks for inpatient hospitalization, Severe depression anxiety, Discharge may exacerbated symptoms, Failed transitioning, Severe functional impairment Progress Toward Problem(s) and Goals/Treatment Plan: * c/w current tx and plan * Appreciate f/u by Dr. Mcdonald/Jory and Dr. Decker on 05/02/18~no new recommendations * Ativan tapered to 1 mg AMHS on 05/02/18 * No new lab results thus far this weekend * Vitals reviewed and noted below: Selected Entries 05/02/18 05/02/18 06:55 20:28 Temperature 98.1 F Pulse Rate 92 H 82 Respiratory 19 Rate Blood Pressure 113/63 106/63 Estimated Date of D/C: 05/05/18
--- NOTE | 2018-05-03 13:17 | PN ---
DATE: 05/03/2018 SUBJECTIVE: Patient is seen in [facility] Behavioral Care Unit in room 518, bed 1. Patient was admitted with depression, auditory hallucination. Patient has past history of mental disorder. Patient also has history of diabetes mellitus, chronic lung disease, and hypertension. Patient has been getting insulin for his diabetes and also other hyperglycemic agents such as metformin. Patient has past history of hepatitis C. Patient also has past history of skin rash. He does not have any rash at this time. This morning, he seemed to be comfortable, lying down in bed. He answers all questions. PHYSICAL EXAMINATION VITAL SIGNS: Pulse is 74, blood pressure 120/70, respirations are 20. HEENT: Patient's head is normocephalic. LUNGS: Clear. HEART: Normal sinus rhythm. ABDOMEN: Soft. Liver and spleen not palpable. TOP PRECIPITATOR OPERATOR: No focal deficits. LABORATORY DATA: Patient's blood was done. There is no change. The chemistry is within normal limits. Patient's blood sugar is 199. Patient has completed treatment for hepatitis C and he says the hepatitis C virus is cleared from his blood. Treated by Gastroenterology, in the past. MEDICATIONS: Patient is on Advair twice a day. Patient is on Ativan, Celexa, folic acid, metformin, glipizide, insulin, magnesium oxide, pantoprazole, Seroquel, atenolol, and multivitamin. ASSESSMENT AND PLAN: Patient seems to be clinically stable. His overall prognosis is guarded. Patient needs treatment for his behavioral disorder and also asthma, chronic lung disease, hypertension, and diabetes. Kenyon Decker MD
--- NOTE | 2018-05-03 13:24 | PN ---
DATE: 05/03/2018 SUBJECTIVE: The patient is admitted with depression. He has chronic alcoholism. The patient has history of chronic obstructive lung disease. The patient has history of diabetes, hypertension. He is seen this morning. He is on a CPAP machine for sleep apnea and chronic lung disease. PHYSICAL EXAMINATION: VITAL SIGNS: The pulse is 74, blood pressure 120/70, respirations are 20, O2 sat is 98% on room air. The patient's temperature is 97.7. HEENT: The patient's head is normocephalic. NECK: The thyroid is not enlarged. Carotid pulses are present. LUNGS: Trachea central. Breath sounds are vesicular and diminished bilaterally. HEART: Normal sinus rhythm. ABDOMEN: Soft, obesity present. Distention of the abdomen noted. DIRECTOR CONSUMER AFFAIRS: The patient is conscious, rational, and oriented. MEDICATIONS: The patient's list of medications consists of Advair, the patient is on twice a day. The patient is on Ativan, Celexa, folic acid, metformin, glipizide, insulin coverage. The patient is on magnesium oxide twice a day. The patient is on pantoprazole, Seroquel, atenolol, albuterol inhalation therapy, and thiamine 100 mg daily. LABORATORY DATA: The patient's blood work, there is no change. PLAN: The patient's condition is clinically improved. The patient is awaiting ECT treatment. Kenyon Decker MD
--- NOTE | 2018-05-03 19:40 | PN ---
DATE: 05/03/2018 PULMONARY PROGRESS NOTE REFERRING PHYSICIAN: Shanon Lazo MD. SUBJECTIVE: He is sitting up in a chair. Night was unremarkable. Tolerated BiPAP well. Cough is okay. No nausea. No vomiting, diarrhea, leg pain or leg swelling. OBJECTIVE: GENERAL: In no acute distress. VITAL SIGNS: Temperature is 98, heart rate is 73, respiratory rate is 18, blood pressure 128/76, pulse ox 96% on room air a few days ago. HEENT: Moist mucous membrane. Crowded airway. Mallampati score is 4. NECK: Supple. No JVD. LUNGS: Have a fair airflow with few rhonchi. HEART: S1 and S2. ABDOMEN: Soft and nontender. No organomegaly. EXTREMITIES: No edema. NEUROLOGICAL: Awake and alert. Follows simple command. MEDICATIONS: He is on Advair 500/50 one puff twice a day, lorazepam 1 mg a.m. and at bedtime, Celexa is 10 mg daily, folic acid 1 mg daily, metformin 1000 mg twice a day, glipizide 10 mg daily, insulin coverage, Maalox p.r.n. basis, mag oxide 400 mg twice a day, Protonix 40 mg daily, Seroquel 300 mg at bedtime, Tenormin 50 mg daily, multivitamins daily, Tylenol p.r.n. basis, Ventolin HFA two puffs every 4 hours p.r.n., vitamin B1 at 100 mg daily, Zestril 2.5 mg daily. LABORATORY DATA: Blood sugar yesterday was 192. IMPRESSION AND PLAN: Schizoaffective disorder, chronic obstructive lung disease, sleep apnea syndrome, morbid obesity, history of suicidal ideation. Pulmonary point of view, doing well. Continue continuous positive airway pressure while sleeping. Keep head at 45 degrees. Careful with sedation. P.o. and inhaled bronchodilator. Continue therapy. Fall precaution. Thank you and we will follow with you. Braden Corley MD
[2018-05-03] MEDS: Insulin Detemir 100 units/ml Vial (Levemir) SC SCH (21:16)
--- NOTE | 2018-05-04 08:33 | PN ---
DATE: 05/04/2018 SUBJECTIVE: The patient was admitted to [facility] Care Unit with depression. The patient has longstanding history of alcoholism. The patient also has history of diabetes and hypertension and sleep apnea. The patient has used CPAP at home. The patient is seen this morning. He is resting in bed. He states he is very lazy and tired. PHYSICAL EXAMINATION: VITAL SIGNS: His pulse is 69, blood pressure 105/68, respirations are 20, his O2 sat is 98% on room air. LUNGS: Clinically clear. Breath sounds are diminished bilaterally. HEART: Normal sinus rhythm. ABDOMEN: Soft. Liver and spleen not palpable. PACKING AND WRAPPING SUPERVISOR: The patient's cranial nerves are intact. Motor and sensory functions within normal range. The patient's cerebellar function is normal. MEDICATIONS: The patient's medications consist of Advair twice a day. The patient gets Ativan 4 times a day. The patient is on Celexa, metformin for diabetes, glipizide for diabetes, insulin for diabetes. The patient is treated with magnesium oxide for low magnesium level in the blood. He gets pantoprazole 40 mg for gastritis, Seroquel 300 mg at night, atenolol 50 mg daily for blood pressure. ASSESSMENT AND PLAN: The patient's clinical condition is stable medically. The patient gets his medications. His lab work, the patient's chemistries, blood sugar is 199 today. We will continue current management. Kenyon Decker MD
[2018-05-04] MEDS: Insulin Reg-LOW-Coverage SC SCH ×4 (08:36→21:41)
[2018-05-04] MEDS: Magnesium Oxide 400 mg Tab UD PO SCH ×2 (08:36→17:38)
[2018-05-04] MEDS: Pantoprazole 40 mg EC Tab PO SCH (08:36)
[2018-05-04] MEDS: Multivitamin Therapeutic Tab PO SCH (08:36)
[2018-05-04] MEDS: Fluticasone-Salmeterol 500-50mcg Diskus INH SCH ×2 (08:37→18:00)
--- NOTE | 2018-05-04 14:42 | PCM.PYCHPN ---
Psychiatric Progress Note - Psychiatric Progress Note Patient seen today, length of contact: 30 minutes Patient Chief Complaint: "I feel depressed, the only hope is ECT" Problems Identified/Issues Discussed: Suicide/ homicide prevention, past psychiatric h/o, current psychiatric symptoms, medical problems, risk/benefits and alternatives of medications, medications compliance, coping strategies, substance abuse h/o, relapse prevention, importance of follow up with psychiatrist and therapist, discharge plan. Medical Problems: see HPI Diagnostic Results: 04/28/18 09:30 04/28/18 09:30 Lab Results 04/30/18 07:22: POC Glucose (mg/dL) 172 H 04/29/18 21:09: POC Glucose (mg/dL) 199 H 04/29/18 16:29: POC Glucose (mg/dL) 215 H 04/29/18 11:05: POC Glucose (mg/dL) 221 H 04/29/18 07:19: POC Glucose (mg/dL) 140 H 04/28/18 21:13: POC Glucose (mg/dL) 263 H 04/28/18 16:33: POC Glucose (mg/dL) 224 H 04/28/18 10:20: Urine Opiates Screen Negative, Urine Methadone Screen Negative, Ur Barbiturates Screen Negative, Ur Phencyclidine Scrn Negative, Ur Amphetamines Screen Negative, U Benzodiazepines Scrn Positive H, U Oth Cocaine Metabols Negative, U Cannabinoids Screen Negative 04/28/18 10:20: Urine Color Yellow, Urine Appearance Clear, Urine pH 5.5, Ur Specific [place] >= 1.030, Urine Protein Trace H, Urine Glucose (UA) 500 H, Urine Ketones 15 H, Urine Blood Negative, Urine Nitrate Negative, Urine Bilirubin Negative, Urine Urobilinogen 0.2, Ur Leukocyte Esterase Negative, Urine RBC 0 - 2, Urine WBC 1 - 3, Urine Bacteria Mod 04/28/18 09:30: Alcohol, Quantitative 134 H 04/28/18 09:30: Salicylates < 1 L, Acetaminophen < 10.0 L 04/28/18 09:30: Sodium 139, Potassium 4.0, Chloride 99, Carbon Dioxide 25, Anion Gap 19, BUN 18, Creatinine 0.9, Est GFR ( Amer) > 60, Est GFR (Non-Af Amer) > 60, Random Glucose 235 H, Calcium 9.1, Magnesium 1.5 L, Total Bilirubin 0.3, AST 35, ALT 55, Alkaline Phosphatase 74, Total Protein 7.3, Albumin 4.5, Globulin 2.8, Albumin/Globulin Ratio 1.6 04/28/18 09:30: WBC 8.4, RBC 4.79, Hgb 14.6, Hct 43.3, MCV 90.4, MCH 30.5, MCHC 33.7, RDW 14.1, Plt Count 309, MPV 9.4, Gran % 66.8, Lymph % (Auto) 27.5, [place] % (Auto) 4.8, Eos % (Auto) 0.8 L, Baso % (Auto) 0.1, Gran # 5.58, Lymph # (Auto) 2.3, [place] # (Auto) 0.4, Eos # (Auto) 0.1, Baso # (Auto) 0.01 Vital Signs Temp Pulse Resp BP Pulse Ox 04/30/18 07:29 97.7 F 76 20 111/69 04/29/18 16:00 74 139/92 H 04/29/18 09:13 77 150/97 H 04/29/18 09:11 77 150/97 H 04/29/18 07:00 97.3 F L 77 20 150/97 H 04/28/18 15:42 17 04/28/18 13:45 96 04/28/18 13:40 90 17 128/80 96 04/28/18 12:53 88 16 125/78 96 04/28/18 11:27 90 16 127/80 96 04/28/18 10:00 94 H 17 126/85 96 04/28/18 09:15 97.8 F 98 H 16 125/87 94 L Temp Pulse Resp BP Pulse Ox 97.3 F L 69 20 105/63 96 05/04/18 07:19 05/04/18 08:36 05/04/18 07:19 05/04/18 08:36 04/28/18 13:45 EKG nonspecific changes. DSM 5 Symptoms Update: shortly pt is 25yo male with reported h/o schizoaffective disorder, bipolar type, h/o alcohol use disorder, h/o multiple previous psychiatric admissions (most recent was [facility] in 04/22/2018, pt came to the [facility] c/o worsening of his depression, suicidal ideation, pt made a request for ECT treatment, prior to this admission pt had a plan to overdose on pills, pt's called [facility] clinic and find out that ECT treatment available in this Hospital. pt was seen at the treatment team meeting today, pt said he is not doing any better, pt said that he has depression for the past 10 years, pt has underlying suicidal ideation, when this software writer asked if his alcoholism is related to his symptoms pt said that he started to drink because of depression, pt said that he was in [facility] for six months and he was feeling even worse being sober. pt insisted to have ECT treatment. pt was cleared by medical team for ECT treatment. Patient reported previous good response on Celexa, meanwhile will increase dose today. pt presented with poor personal hygiene, acceptable ADLs. pt tavares multiple psych admissions to [facility], h/o of suicidal attempts most recent was prior [facility]. pt contracted for safety. As per staff, patient is self isolating, depressed, irritable and paranoid, but no agitation or aggression. Impression: correction to diagnosis h/o bipolar disorder, most recent episode mixed r/o schizoaffective disorder bipolar type r/o substance induced mood disorder alohol abuse/dependence Medication Change: Yes (Ativan d/c.) Medical Record Reviewed: Yes Consults ordered or reviewed: medical team evaluated pt pulmonology evaluated patient, patient needs to be on nebulizer as well as CPAP machine Mental Status Examination - Cognitive Function Orientation: Person, Place, Situation Memory: Intact Attention: WNL Concentration: Poor Association: Loose Fund of Knowledge: Poor - Mood Mood: Depressed, Anxious - Affect Affect: Constricted - Speech Speech: Appropriate - Formal Thought Process Formal Thought Process: No Impairment - Suicidal Ideation Suicidal Ideation: No - Homicidal Ideation Homicidal Ideation: No Goal/Treatment Plan - Goal/Treatment Plan Need for Continued Stay: Remain at risks for inpatient hospitalization, Severe depression anxiety, Discharge may exacerbated symptoms, Failed transitioning, Severe functional impairment Progress Toward Problem(s) and Goals/Treatment Plan: Milieu/structure/supportive therapy Medical consult appreciated, see medical team note for more detailed info SW consultation for discharge plan and social issues Med management seroquel resumed ativan 1mg po bid d/c Celexa 20 mg daily for depression and anxiety Possible ECT treatment tomorrow MVI/thiamine/folic acid Family involvement Follow up on labs Will monitor closely Pt was educated about risk/benefits and alternatives of medications, coping strategies (safety plan, suicide prevention), relapse prevention, importance of follow up with psychiatrist and therapist, stay away from drugs/alcohol/smoking Estimated Date of D/C: 05/13/18
[2018-05-04] MEDS: Insulin Detemir 100 units/ml Vial (Levemir) SC SCH (22:02)
--- NOTE | 2018-05-04 23:10 | PN ---
DATE: 05/04/2018 PULMONARY PROGRESS NOTE REFERRING PHYSICIAN: Shanon Lazo MD SUBJECTIVE: He is sitting up in a chair. Night was unremarkable, tolerated CPAP well. Feels better. No nausea, no vomiting, no diarrhea. No leg pain or leg swelling. OBJECTIVE: GENERAL: No acute distress. VITAL SIGNS: Temperature is 98, heart 77, respiratory rate is 20, blood pressure 123/79. HEENT: Moist mucous membranes. No ulcer or thrush. NECK: Supple. No JVD. LUNGS: Have a fair airflow with rhonchi. HEART: S1, S2. ABDOMEN: Soft, nontender. No organomegaly. EXTREMITIES: No edema. NEUROLOGIC: Awake, alert, follows simple command. MEDICATIONS: He is on Advair 500/50 one puff twice a day, Celexa 20 mg daily, folic acid 1 mg daily, metformin 1000 mg twice a day, glipizide 10 mg daily, insulin coverage, Levemir 40 units subcu at bedtime, mag oxide 400 mg twice a day, milk of magnesia 30 mL daily, Protonix 40 mg daily, Seroquel 300 mg at bedtime, Tenormin 50 mg daily, multivitamins daily, Tylenol p.r.n., Ventolin HFA 2 puffs every 6 hours p.r.n., vitamin B1 at 100 mg daily, Zestril 2.5 mg daily. LABORATORY DATA: Reviewed. Blood sugar today is 146. IMPRESSION AND PLAN: Schizoaffective disorder, chronic obstructive lung disease, sleep apnea syndrome, morbid obesity, history of suicidal ideation. Pulmonary point of view, doing well. Continue CPAP while sleeping. Keep head at 45 degrees. Continue inhaled bronchodilator, gastric prophylaxis. Fall precaution. Spoke to nursing staff. Thank you and we will follow with you. Braden Corley MD
[2018-05-05] MEDS: Fluticasone-Salmeterol 500-50mcg Diskus INH SCH ×2 (07:10→17:28)
[2018-05-05] MEDS: Insulin Reg-LOW-Coverage SC SCH ×4 (07:45→21:13)
--- NOTE | 2018-05-05 08:39 | PN ---
DATE: 05/05/2018 LOCATION: The patient is in [facility], room 518, bed 1. SUBJECTIVE: The patient was admitted with depression. The patient has medical history of diabetes, chronic lung disease. The patient has also history of hypertension, alcoholism. He is resting, sleeping in bed. He answers questions and apparently ECT has been scheduled to today. PHYSICAL EXAMINATION: VITAL SIGNS: Pulse is 73, blood pressure 130/84, respirations are 20. HEENT: The patient's examination of the head is normocephalic. NECK: The thyroid is not enlarged. JVP is flat. LUNGS: Clear. HEART: Normal sinus rhythm. S1 and S2 present. ABDOMEN: Soft. Obesity present. 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 LABORATORY DATA: The patient's lab work was done on 04/28/2018. The white count is within normal range. The patient's chemistry is okay. We will repeat his chemistry. His blood sugar is 251, is slightly elevated and has sugar runs closer 200. ASSESSMENT AND PLAN: The patient is scheduled for ECT today and medically cleared. There is no apparent contraindication at this time. This procedure will be done under anesthesia. The patient's list of medications: He is on Advair twice a day for COPD. The patient is on Celexa, folic acid, metformin, glipizide, insulin coverage. The patient is on Protonix, the magnesium oxide, Seroquel, atenolol and the patient is on DuoNeb inhaler, thiamine 100 mg and lisinopril 2.5 mg. We will continue current management and followup. Kenyon Decker MD
[2018-05-05] MEDS ORDERED: Succinylcholine 200 mg/10 ml Inj IV ONE (10:08)
[2018-05-05] MEDS ORDERED: Propofol 10 mg/ml Inj (20 ML) ONE (10:08)
[2018-05-05] MEDS ORDERED: Lactated Ringer's 1,000 ML IV SCH (10:45)
[2018-05-05] MEDS: Multivitamin Therapeutic Tab PO SCH (12:04)
[2018-05-05] MEDS: Magnesium Oxide 400 mg Tab UD PO SCH ×2 (12:04→17:27)
[2018-05-05] MEDS: Pantoprazole 40 mg EC Tab PO SCH (12:55)
[2018-05-05] MEDS: Magnesium Hydroxide Susp 30 ml UD PO PRN (13:53)
--- NOTE | 2018-05-05 14:20 | PCM.PYCHPN ---
Psychiatric Progress Note - Psychiatric Progress Note Patient seen today, length of contact: 30 minutes Patient Chief Complaint: "I feel depressed, the only hope is ECT" Problems Identified/Issues Discussed: Suicide/ homicide prevention, past psychiatric h/o, current psychiatric symptoms, medical problems, risk/benefits and alternatives of medications, medications compliance, coping strategies, substance abuse h/o, relapse prevention, importance of follow up with psychiatrist and therapist, discharge plan. Medical Problems: see HPI Diagnostic Results: 04/28/18 09:30 04/28/18 09:30 Lab Results 04/30/18 07:22: POC Glucose (mg/dL) 172 H 04/29/18 21:09: POC Glucose (mg/dL) 199 H 04/29/18 16:29: POC Glucose (mg/dL) 215 H 04/29/18 11:05: POC Glucose (mg/dL) 221 H 04/29/18 07:19: POC Glucose (mg/dL) 140 H 04/28/18 21:13: POC Glucose (mg/dL) 263 H 04/28/18 16:33: POC Glucose (mg/dL) 224 H 04/28/18 10:20: Urine Opiates Screen Negative, Urine Methadone Screen Negative, Ur Barbiturates Screen Negative, Ur Phencyclidine Scrn Negative, Ur Amphetamines Screen Negative, U Benzodiazepines Scrn Positive H, U Oth Cocaine Metabols Negative, U Cannabinoids Screen Negative 04/28/18 10:20: Urine Color Yellow, Urine Appearance Clear, Urine pH 5.5, Ur Specific [place] >= 1.030, Urine Protein Trace H, Urine Glucose (UA) 500 H, Urine Ketones 15 H, Urine Blood Negative, Urine Nitrate Negative, Urine Bilirubin Negative, Urine Urobilinogen 0.2, Ur Leukocyte Esterase Negative, Urine RBC 0 - 2, Urine WBC 1 - 3, Urine Bacteria Mod 04/28/18 09:30: Alcohol, Quantitative 134 H 04/28/18 09:30: Salicylates < 1 L, Acetaminophen < 10.0 L 04/28/18 09:30: Sodium 139, Potassium 4.0, Chloride 99, Carbon Dioxide 25, Anion Gap 19, BUN 18, Creatinine 0.9, Est GFR ( Amer) > 60, Est GFR (Non-Af Amer) > 60, Random Glucose 235 H, Calcium 9.1, Magnesium 1.5 L, Total Bilirubin 0.3, AST 35, ALT 55, Alkaline Phosphatase 74, Total Protein 7.3, Albumin 4.5, Globulin 2.8, Albumin/Globulin Ratio 1.6 04/28/18 09:30: WBC 8.4, RBC 4.79, Hgb 14.6, Hct 43.3, MCV 90.4, MCH 30.5, MCHC 33.7, RDW 14.1, Plt Count 309, MPV 9.4, Gran % 66.8, Lymph % (Auto) 27.5, [place] % (Auto) 4.8, Eos % (Auto) 0.8 L, Baso % (Auto) 0.1, Gran # 5.58, Lymph # (Auto) 2.3, [place] # (Auto) 0.4, Eos # (Auto) 0.1, Baso # (Auto) 0.01 Vital Signs Temp Pulse Resp BP Pulse Ox 04/30/18 07:29 97.7 F 76 20 111/69 04/29/18 16:00 74 139/92 H 04/29/18 09:13 77 150/97 H 04/29/18 09:11 77 150/97 H 04/29/18 07:00 97.3 F L 77 20 150/97 H 04/28/18 15:42 17 04/28/18 13:45 96 04/28/18 13:40 90 17 128/80 96 04/28/18 12:53 88 16 125/78 96 04/28/18 11:27 90 16 127/80 96 04/28/18 10:00 94 H 17 126/85 96 04/28/18 09:15 97.8 F 98 H 16 125/87 94 L Temp Pulse Resp BP Pulse Ox 97.3 F L 69 20 105/63 96 05/04/18 07:19 05/04/18 08:36 05/04/18 07:19 05/04/18 08:36 04/28/18 13:45 EKG nonspecific changes. DSM 5 Symptoms Update: shortly pt is 25yo male with reported h/o schizoaffective disorder, bipolar type, h/o alcohol use disorder, h/o multiple previous psychiatric admissions (most recent was [facility] in 04/22/2018, pt came to the [facility] c/o worsening of his depression, suicidal ideation, pt made a request for ECT treatment, prior to this admission pt had a plan to overdose on pills, pt's called [facility] clinic and find out that ECT treatment available in this Hospital. pt was seen at the OR holding area, pt signed consent for treatment. pt said "my only hope is ECT". considering the fact it is his first ECT this rewriter used titration algorithm. 05/05/18 ECT #1, pt had BL treatment, 50% or 1,5xST/ 0.3 MS BL, 30Hz, 8S/115.2 mc. pt had adequate seizures. pt was seen later on in the unit. pt did not appear to be confused, does not have any new complaints. Later on pt ate, observed watching TV. As per staff, patient is self isolating, depressed, irritable but no paranoia today, but no agitation or aggression. Impression: h/o bipolar disorder, most recent episode mixed r/o schizoaffective disorder bipolar type r/o substance induced mood disorder alohol abuse/dependence Pt was referred to ECT program by [facility]. as per history: worsening of depression for the past 10years more than 10psychiatric admissions, including state hospitalization in [facility] "for six months, I was doing horrible still". multiple medication trials adequate doses "I was on all medications under this sun" coping with depression with alcohol and h/o cocaine abuse. h/o bipolar disorder vs schizoaffective disorder bipolar type. last admission to [facility] April 2018, pt overdosed on Atenolol pills and drinking 2pints of vodka. 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 October/November 2017 pt was admitted involuntary at [facility]. December 2017 for the same presenting problems through mobile crisis. Chronic underlying suicidal ideation. Medication Change: No Medical Record Reviewed: Yes Consults ordered or reviewed: medical team evaluated pt, cleared for ECT pulmonology evaluated patient, patient needs to be on nebulizer as well as CPAP machine Mental Status Examination - Cognitive Function Orientation: Person, Place, Situation Memory: Intact Attention: WNL Concentration: Poor Association: Loose Fund of Knowledge: Poor - Mood Mood: Depressed, Anxious - Affect Affect: Constricted - Speech Speech: Appropriate - Formal Thought Process Formal Thought Process: No Impairment - Suicidal Ideation Suicidal Ideation: No - Homicidal Ideation Homicidal Ideation: No Goal/Treatment Plan - Goal/Treatment Plan Need for Continued Stay: Remain at risks for inpatient hospitalization, Severe depression anxiety, Discharge may exacerbated symptoms, Failed transitioning, Severe functional impairment Progress Toward Problem(s) and Goals/Treatment Plan: Milieu/structure/supportive therapy Medical consult appreciated, see medical team note for more detailed info SW consultation for discharge plan and social issues Med management seroquel 300mg po hs for mood stabilization and augment for MDD ativan 1mg po bid d/c Celexa 20 mg daily for depression and anxiety #1 ECT treatment 05/05/18 MVI/thiamine/folic acid Family involvement Follow up on labs Will monitor closely Pt was educated about risk/benefits and alternatives of medications, coping strategies (safety plan, suicide prevention), relapse prevention, importance of follow up with psychiatrist and therapist, stay away from drugs/alcohol/smoking Estimated Date of D/C: 05/13/18
[2018-05-05] MEDS: Insulin Detemir 100 units/ml Vial (Levemir) SC SCH (21:55)
--- NOTE | 2018-05-05 22:48 | PN ---
DATE: 05/05/2018 PULMONARY PROGRESS NOTE REFERRING PHYSICIAN: Dr. Shanon Lazo SUBJECTIVE: He is ambulating in the hallway, feels better, night was unremarkable, tolerated CPAP well, receiving inhaled bronchodilator. No cough. No sputum production. No nausea, vomiting, diarrhea, leg pain or leg swelling. OBJECTIVE: GENERAL: In no acute distress. VITAL SIGNS: Temperature is 98, heart rate 76, respiratory rate is 18, blood pressure 120/81. HEENT: Moist mucous membrane. Crowded airway. Mallampati score is 4. NECK: Supple. No JVD. LUNGS: Have a fair airflow with rhonchi. HEART: S1 and S2. ABDOMEN: Soft, nontender. No organomegaly. EXTREMITIES: There is no edema. NEUROLOGIC: Awake and alert, follows simple command. MEDICATIONS: He is on Advair 500/50 1 puff twice a day, Celexa 20 mg daily, folic acid 1 mg daily, metformin 1000 mg twice a day, Glucotrol 10 mg daily, insulin coverage, Levemir 40 units subcu at bedtime, Maalox 30 mL p.r.n., mag oxide 400 mg twice a day, milk of magnesia p.r.n., Protonix 40 mg daily, Seroquel 300 mg at bedtime, Tenormin 50 mg daily, multivitamins daily, Tylenol p.r.n. basis, Ventolin HFA 2 puffs every 4 hours p.r.n., vitamin B1 100 mg daily, Zestril 2.5 mg daily. LABORATORY DATA: Shows blood sugar this morning 242. IMPRESSION AND PLAN: Schizoaffective disorder, chronic obstructive lung disease, sleep apnea syndrome, morbid obesity. Pulmonary point of view, doing okay. Continue inhaled bronchodilator. Encourage CPAP use. Keep head at 45 degrees. Careful with sedation. Fall precaution. Continue therapy. Thank you and we will follow with you. Braden Corley MD
[2018-05-06] MEDS: Fluticasone-Salmeterol 500-50mcg Diskus INH SCH ×2 (06:38→17:36)
[2018-05-06 07:58] LABS: ALB/GLOB RATIO 1.6 (1.1-1.8); ALBUMIN 4.3 g/dL (3.0-4.8); ALT/SGPT 104 U/L (7-56); AST/SGOT 53 U/L (17-59); BLOOD UREA NITROGEN 16 mg/dL (7-21); CALCIUM 9.6 mg/dL (8.4-10.5); GFR NON-AFRICAN AMERICAN > 60
[2018-05-06] MEDS: Insulin Reg-LOW-Coverage SC SCH ×4 (08:05→21:22)
[2018-05-06] MEDS: Magnesium Oxide 400 mg Tab UD PO SCH ×2 (08:25→17:36)
[2018-05-06] MEDS: Pantoprazole 40 mg EC Tab PO SCH (08:25)
[2018-05-06] MEDS: Multivitamin Therapeutic Tab PO SCH (08:25)
--- NOTE | 2018-05-06 12:03 | PCM.BM ---
<Preethi Reyes - Last Filed: 05/06/18 11:59> Treatment Plan Problems - Problems identified on initial assessmt INEFFECTIVE INDV COPING Date Initiated: 04/28/18 (05/06 remain feeling depressed and getting ect 2x/wk) Time Initiated: 19:00 Assessment reference: NA Status: Active Priority: 1 HOPELESS/HELPLESS Date Initiated: 04/28/18 (05/06 reman feeling helpless) Time Initiated: 19:00 Assessment reference: NA Status: Active Priority: 2 FEELING WORTHLESS Date Initiated: 04/28/18 (05/06 remain feeling worthless) Time Initiated: 19:00 Assessment reference: NA Status: Active Priority: 3 ALTERATION IN SLEEP Date Initiated: 04/28/18 (05/06 remain with poor sleep) Time Initiated: 19:00 Assessment reference: NA Status: Active Priority: 4 KNOWLEDGE DEFICIT ALCOHOL USE Date Initiated: 04/28/18 Time Initiated: 19:00 Assessment reference: NA Status: Active Priority: 5 Treatment assets and liabiliti Patient Assests: cooperative, ADL independent, good support system, cognitively intact Patient Liabilities: substance abuse - Milieu Protocol Maintain good personal hygiene: every shift Encourage regular showers, every shift Remind patient to perform daily oral care, every shift Assist patient to perform ADL's Maintain personal safety: every other day Educate patient to report safety concerns to staff, every other day Monitor environment for contraband/sharps Medication safety: Monitor for expected outcome, potential side effects: every other day, Assess barriers to learning: every other day, Assess readiness for medication education: every other day Milieu Narrative: Milieu/structure/supportive therapy Medical consult appreciated, see medical team note for more detailed info SW consultation for discharge plan and social issues Med management seroquel 300mg po hs for mood stabilization and augment for MDD ativan 1mg po bid d/c Celexa 20 mg daily for depression and anxiety #1 ECT treatment 05/05/18 MVI/thiamine/folic acid Family involvement Follow up on labs Will monitor closely Pt was educated about risk/benefits and alternatives of medications, coping strategies (safety plan, suicide prevention), relapse prevention, importance of follow up with psychiatrist and therapist, stay away from drugs/alcohol/smoking Family Contact Family involvement: Family/SO is involved Family contact: Patient agrees to contact Family contact name: Leticia Gonzalez() Family contacted how many times per week?: 2 - Goals for Treatment Patient goals for treatment: "To get better." Discharge/Continuing Care - Education Needs Education Needs: Patient Medication, Patient Diagnosis/Disease Process, Patient Coping Skills, Patient Community resources, Patient Activities of Daily Living, Patient Nutrition, Patient Uses of Medical Equipment, Patient Health Practices/Safety, Patient Personal Hygiene/Grooming, Patient Aftercare Safety P mayr - Discharge Discharge Criteria: Tolerates medication w/o severe side effects, Free of agitation, Normal sleep pattern, Ability to care for self, No longer exhibiting s/s of withdrawal, Reduction of target symptoms Discharge to:: Home - Treatment Team Participation Patient/Family/SO Statement: Milieu/structure/supportive therapy Medical consult appreciated, see medical team note for more detailed info SW consultation for discharge plan and social issues Med management seroquel 300mg po hs for mood stabilization and augment for MDD ativan 1mg po bid d/c Celexa 20 mg daily for depression and anxiety #1 ECT treatment 05/05/18 MVI/thiamine/folic acid Family involvement Follow up on labs Will monitor closely Pt was educated about risk/benefits and alternatives of medications, coping strategies (safety plan, suicide prevention), relapse prevention, importance of follow up with psychiatrist and therapist, stay away from drugs/alcohol/smoking Treatment Plan Review - Problem INEFFECTIVE INDV COPING Time Initiated: 19:00 HOPELESS/HELPLESS Time Initiated: 19:00 FEELING WORTHLESS Time Initiated: 19:00 ALTERATION IN SLEEP Time Initiated: 19:00 KNOWLEDGE DEFICIT ALCOHOL USE Time Initiated: 19:00 <Shanon Lazo A - Last Filed: 05/06/18 15:59> - Diagnosis (1) Major depression Status: Acute Interventions: 05/06/18 15:59 "I still feel the same, I am very depressed"
--- NOTE | 2018-05-06 13:05 | PN ---
DATE: 05/06/2018 LOCATION: The patient is in [facility] in Behavioral Care Unit. SUBJECTIVE: The patient was admitted with depression. The patient has history of diabetes, chronic lung disease. The patient also has history of hypertension, alcoholism. He is seen this morning. He had ECT treatment yesterday. He still does not feel good according to his judgment at this time. PHYSICAL EXAMINATION: VITAL SIGNS: Pulse is 75, blood pressure 105/62, respirations are 20, the patient's temperature 97.8. HEENT: His head is normocephalic. LUNGS: Clear. HEART: Normal sinus rhythm. ABDOMEN: Soft. Liver and spleen not palpable. APPLICATION SECURITY ARCHITECT: No focal deficit. MEDICATIONS: The patient is on Advair twice a day, Celexa 20 mg daily, folic acid 1 mg daily. He is on metformin, glipizide, insulin coverage for diabetes. The patient gets magnesium oxide 400 mg b.i.d. for low magnesium level, pantoprazole 40 mg daily, Seroquel 300 mg at night, atenolol 50 mg daily and the patient is on heart-healthy diabetic diet. LABORATORY DATA: His blood work is repeated, but the results are not posted. ASSESSMENT AND PLAN: His condition seemed to be pretty much at a standstill at this time. We will have to wait to see the results. He might need further ECT treatment. We will follow up with the psychiatric care. Kenyon Decker MD
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
--- NOTE | 2018-05-06 16:06 | PN ---
DATE: 05/06/2018 PULMONARY PROGRESS NOTE REFERRING PHYSICIAN: Shanon Lazo MD. SUBJECTIVE: The patient is ambulating in the room. Night was unremarkable. Complaining about insomnia, but did use CPAP. No cough. No sputum production. No nausea, vomiting, diarrhea, leg pain or leg swelling. OBJECTIVE: GENERAL: In no acute distress. VITAL SIGNS: Temperature is 98, heart rate is 75, respiratory rate is 20, blood pressure 105/62. HEENT: Moist mucous membrane. Crowded airway. NECK: Supple. No JVD. LUNGS: Have a fair airflow with rhonchi. HEART: S1 and S2. ABDOMEN: Soft, nontender. No organomegaly. EXTREMITIES: There is no edema. NEUROLOGICAL: Awake and alert. Follows simple command. MEDICATIONS: He is on Advair 500/50 one puff twice a day, Celexa 20 mg daily, folic acid 1 mg daily, metformin 1000 mg twice a day, glipizide 10 mg daily, insulin coverage, Levemir 40 units subcu at bedtime, Maalox p.r.n. basis, mag oxide mg twice a day, milk of magnesia p.r.n. basis, Protonix 40 mg daily, Seroquel 300 mg at bedtime, atenolol 50 mg daily, multivitamins daily, vitamin B1 at 100 mg daily, lisinopril 2.5 mg daily. LABORATORY DATA: Shows sodium is 139, potassium 2.9, chloride 99, bicarbonate 31, BUN 16, creatinine 1, glucose is 161, calcium 9.6, magnesium not available, AST 53, ALT 104, alk phos is 63, albumin is 2.7. IMPRESSION AND PLAN: Schizoaffective disorder, chronic obstructive lung disease, sleep apnea syndrome, morbid obesity. Pulmonary point of view, doing okay. Continue bronchodilator. Keep head at 45 degrees. Encourage CPAP use. Fall precaution. Gastric prophylaxis. Continue therapy. Thank you and we will follow with you. Braden Corley MD
[2018-05-06] MEDS: Insulin Detemir 100 units/ml Vial (Levemir) SC SCH (21:46)
[2018-05-07] MEDS: Fluticasone-Salmeterol 500-50mcg Diskus INH SCH ×2 (06:40→18:37)
[2018-05-07] MEDS ORDERED: Succinylcholine 200 mg/10 ml Inj IV ONE (10:51)
[2018-05-07] MEDS ORDERED: Propofol 10 mg/ml Inj (20 ML) ONE (10:51)
[2018-05-07] MEDS ORDERED: Midazolam 2 MG/2 ML VIAL ONE (11:06)
[2018-05-07] MEDS ORDERED: Sodium Chloride 0.9% 1,000 ML IV SCH (11:30)
[2018-05-07] MEDS: Multivitamin Therapeutic Tab PO SCH (12:55)
[2018-05-07] MEDS: Magnesium Oxide 400 mg Tab UD PO SCH ×2 (12:55→16:53)
[2018-05-07] MEDS: Pantoprazole 40 mg EC Tab PO SCH (12:56)
[2018-05-07] MEDS: Insulin Reg-LOW-Coverage SC SCH ×4 (12:58→21:39)
--- NOTE | 2018-05-07 16:44 | CP.PCM.PN ---
Subjective - Date & Time of Evaluation Date of Evaluation: 05/07/18 Time of Evaluation: 07:30 - Subjective Subjective: Patient seen this morning. He is to have another ECT treatment today. Objective - Vital Signs/Intake and Output Vital Signs (last 24 hours): Temp Pulse Resp BP Pulse Ox 97.0 F L 76 17 126/87 98 05/07/18 12:53 05/07/18 12:56 05/07/18 11:40 05/07/18 12:56 05/07/18 11:40 Intake and Output: 05/07/18 05/07/18 06:59 18:59 Intake Total 0 Balance 0 - Medications Medications: Current Medications Acetaminophen (Tylenol 325mg Tab) 650 mg PO Q6H PRN PRN Reason: Pain, severe (8-10) Last Admin: 05/07/18 12:53 Dose: 650 mg Al Hydrox/Mg Hydrox/Simethicone (Maalox Plus 30 Ml) 30 ml PO DAILY PRN PRN Reason: Indigestion / Heartburn Albuterol (Ventolin Hfa 90 Mcg/Actuation (8 G)) 2 puff IH [id number] PRN PRN Reason: Shortness of Breath Atenolol (Tenormin) 50 mg PO DAILY [facility] Last Admin: 05/07/18 12:55 Dose: 50 mg Citalopram Hydrobromide (Celexa) 20 mg PO DAILY [facility] Last Admin: 05/07/18 12:56 Dose: 20 mg Folic Acid (Folic Acid) 1 mg PO DAILY [facility] Last Admin: 05/07/18 12:55 Dose: 1 mg Glipizide (Glucotrol) 10 mg PO DAILY [facility] Last Admin: 05/07/18 12:54 Dose: 10 mg Sodium Chloride (Sodium Chloride 0.9%) 1,000 mls @ 100 mls/hr IV .Q10H [facility] Insulin Detemir (Levemir) 40 unit SC HS [facility] Last Admin: 05/06/18 21:46 Dose: 40 u Insulin Human Regular (Humulin R Low) 0 units SC ACHS [facility]; Protocol Last Admin: 05/07/18 12:58 Dose: 1 unit Lisinopril (Zestril) 2.5 mg PO DAILY [facility] Last Admin: 05/07/18 12:56 Dose: 2.5 mg Magnesium Hydroxide (Milk Of Magnesia) 30 ml PO DAILY PRN PRN Reason: Constipation Last Admin: 05/05/18 13:53 Dose: 30 ml Magnesium Oxide (Mag-Ox) 400 mg PO BID [facility] Last Admin: 05/07/18 12:55 Dose: 400 mg Metformin HCl (Glucophage) 1,000 mg PO BID [facility] Last Admin: 05/07/18 12:54 Dose: 1,000 mg Multivitamins (Thera Tab) 1 tab PO 0800 [facility] Last Admin: 05/07/18 12:55 Dose: 1 tab Pantoprazole Sodium (Protonix Ec Tab) 40 mg PO DAILY [facility] Last Admin: 05/07/18 12:56 Dose: 40 mg Quetiapine Fumarate (Seroquel) 300 mg PO HS [facility]; Protocol Last Admin: 05/06/18 21:47 Dose: 300 mg Fluticasone/Salmeterol (Advair Diskus 500/50) 1 puff INH Q12 [facility] Last Admin: 05/07/18 06:40 Dose: 1 puff Thiamine HCl (Vitamin B1 Tab) 100 mg PO DAILY [facility] Last Admin: 05/07/18 12:57 Dose: 100 mg - Labs Labs: 04/28/18 09:30 05/06/18 07:20 - Constitutional Appears: No Acute Distress - Head Exam Head Exam: ATRAUMATIC, NORMOCEPHALIC - Respiratory Exam Respiratory Exam: Clear to Ausculation Bilateral, NORMAL BREATHING PATTERN - Cardiovascular Exam Cardiovascular Exam: REGULAR RHYTHM, +S1, +S2 - GI/Abdominal Exam GI & Abdominal Exam: Soft, Normal Bowel Sounds. absent: Tenderness - Extremities Exam Extremities Exam: Normal Inspection - Neurological Exam Neurological Exam: Alert, Awake, Oriented x3 Assessment and Plan - Assessment and Plan (Free Text) Assessment: HTN DMII history of alcholism Plan: continue medications blood sugar is reasonably controlled blood pressure is controlled behavioral treatment as per psychiatry
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
[2018-05-07] MEDS: Insulin Detemir 100 units/ml Vial (Levemir) SC SCH (21:41)
--- NOTE | 2018-05-07 22:46 | PN ---
DATE: 05/07/2018 PULMONARY PROGRESS NOTE REFERRING PHYSICIAN: Shanon Lazo MD. SUBJECTIVE: He is sitting up in a chair. is at bedside. Night was unremarkable. Has ECT therapy. Complaining of insomnia. No cough. No sputum production. No nausea, vomiting, diarrhea, leg pain, leg swelling. OBJECTIVE: GENERAL: In no acute distress. VITAL SIGNS: Temperature is 98, heart rate is 68, respiratory rate is 20, blood pressure 118/78. HEENT: Moist mucous membrane. Crowded airway. NECK: Supple. No JVD. LUNGS: Have a fair airflow with few rhonchi. HEART: S1 and S2. ABDOMEN: Soft and nontender. No organomegaly. EXTREMITIES: No edema. NEUROLOGICAL: Awake and alert. Follows simple command. MEDICATIONS: He is on Advair 500/50 one puff twice a day, Celexa 20 mg daily, folic acid 1 mg daily, metformin 1000 mg twice a day, glipizide 10 mg daily, insulin coverage, Levemir 40 units subcu at bedtime, milk of magnesia 30 mL p.r.n. basis, mag oxide 400 mg twice a day, Protonix 40 mg daily, Seroquel 300 mg at bedtime, IV fluid normal saline 100 mL/hour, Sonata 5 mg at bedtime, Tylenol 50 mg daily, multivitamins daily, Ventolin 2 puffs every 6 hours p.r.n., thiamine 100 mg daily, Zestril 2.5 mg daily. LABORATORY DATA: Reviewed. Blood sugar today is 123. IMPRESSION AND PLAN: Schizoaffective disorder, chronic obstructive lung disease, sleep apnea syndrome, morbid obesity. Pulmonary point of view, doing okay. Spoke to the at bedside. Continue p.o. and inhaled bronchodilator. Encourage CPAP use at night. Careful with sedation. Gastric prophylaxis. Fall precaution. Continue therapy. Thank you and we will follow with you. Braden Corley MD
[2018-05-08] MEDS: Multivitamin Therapeutic Tab PO SCH (08:41)
[2018-05-08] MEDS: Magnesium Oxide 400 mg Tab UD PO SCH ×2 (08:41→17:04)
[2018-05-08] MEDS: Fluticasone-Salmeterol 500-50mcg Diskus INH SCH ×2 (08:41→17:09)
[2018-05-08] MEDS: Pantoprazole 40 mg EC Tab PO SCH (08:42)
[2018-05-08] MEDS: Insulin Reg-LOW-Coverage SC SCH ×4 (08:42→22:00)
--- NOTE | 2018-05-08 14:05 | PN ---
DATE: 05/08/2018 SUBJECTIVE: The patient is in [facility] behavioral care unit, room 518, bed 1. He was admitted with depression. The patient had past history of diabetes, chronic lung disease. The patient has history of alcoholism. It seemed this morning he had ECG treatment yesterday. He says he does not feel that much different. PHYSICAL EXAMINATION: VITAL SIGNS: Pulse is 63, blood pressure 110/60, respirations 20, O2 sat is 93% on room air, and the patient's temperature is 97.3. HEENT: The patient's head is normocephalic. LUNGS: Clear. HEART: Normal sinus rhythm. ABDOMEN: Soft. Liver and spleen not palpable. CENTRAL NERVOUS SYSTEM: No focal deficit. The patient answers all questions. LABORATORY DATA: His blood work done is stable. MEDICATIONS: The patient is on Advair twice a day, the patient is on Celexa, folic acid, metformin, glipizide, insulin coverage. The patient is also getting thiamine, magnesium oxide, pantoprazole, Seroquel. The patient is on atenolol 50 mg too. ASSESSMENT AND PLAN: Diet is heart healthy diet. Diabetic. We will continue current management. Follow up with behavioral care unit physician. Kenyon Decker MD
--- NOTE | 2018-05-08 15:22 | PCM.BM ---
<Shanon Lazo - Last Filed: 05/08/18 15:55> - Diagnosis (1) Major depression Status: Acute Interventions: 05/08/18 15:55 pt reported no improvement with his symptoms pt reported that he has difficulties to fall and to stay asleep denied any intent or plan to kill self, but passive wish to be <Rita Hoffman - Last Filed: 05/13/18 15:22> Treatment Plan Problems - Problems identified on initial assessmt ALTERATION IN SLEEP Date Initiated: 04/28/18 (05/06 remain with poor sleep) Time Initiated: 19:00 Assessment reference: NA Status: Active Priority: 4 FEELING WORTHLESS Date Initiated: 04/28/18 (05/06 remain feeling worthless) Time Initiated: 19:00 Assessment reference: NA Status: Active Priority: 3 HOPELESS/HELPLESS Date Initiated: 04/28/18 (05/06 reman feeling helpless) Time Initiated: 19:00 Assessment reference: NA Status: Active Priority: 2 INEFFECTIVE INDV COPING Date Initiated: 04/28/18 (05/06 remain feeling depressed and getting ect 2x/wk) Time Initiated: 19:00 Assessment reference: NA Status: Active Priority: 1 KNOWLEDGE DEFICIT ALCOHOL USE Date Initiated: 04/28/18 Time Initiated: 19:00 Assessment reference: NA Status: Active Priority: 5 Treatment assets and liabiliti Patient Assests: cooperative, ADL independent, good support system, cognitively intact Patient Liabilities: substance abuse - Milieu Protocol Maintain good personal hygiene: every shift Encourage regular showers, every shift Remind patient to perform daily oral care, every shift Assist patient to perform ADL's Maintain personal safety: every other day Educate patient to report safety concerns to staff, every other day Monitor environment for contraband/sharps Medication safety: Monitor for expected outcome, potential side effects: every other day, Assess barriers to learning: every other day, Assess readiness for medication education: every other day Milieu Narrative: * c/w current treatment and plan * No new weekend lab results thus far * Vitals reviewed and noted below: Family Contact Family contact: Patient agrees to contact Family contact name: Leticia Gonzalez() Family contacted how many times per week?: 2 - Goals for Treatment Patient goals for treatment: "To get better." Discharge/Continuing Care - Education Needs Education Needs: Patient Medication, Patient Diagnosis/Disease Process, Patient Coping Skills, Patient Community resources, Patient Activities of Daily Living, Patient Nutrition, Patient Uses of Medical Equipment, Patient Health Practices/Safety, Patient Personal Hygiene/Grooming, Patient Aftercare Safety Plan - Discharge Discharge Criteria: Tolerates medication w/o severe side effects, Free of agitation, Normal sleep pattern, Ability to care for self, No longer exhibiting s/s of withdrawal, Reduction of target symptoms Discharge to:: Home - Treatment Team Participation Patient/Family/SO Statement: * c/w current treatment and plan * No new weekend lab results thus far * Vitals reviewed and noted below: Treatment Plan Review - Problem ALTERATION IN SLEEP Time Initiated: 19:00 FEELING WORTHLESS Time Initiated: 19:00 HOPELESS/HELPLESS Time Initiated: 19:00 INEFFECTIVE INDV COPING Time Initiated: 19:00 KNOWLEDGE DEFICIT ALCOHOL USE Time Initiated: 19:00
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
--- NOTE | 2018-05-08 20:39 | PN ---
DATE: 05/08/2018 PULMONARY PROGRESS NOTE REFERRING PHYSICIAN: Shanon Lazo MD. SUBJECTIVE: Sitting, watching TV. Night was unremarkable, still complaining about insomnia, but using CPAP and inhaled bronchodilator. No nausea, vomiting, or diarrhea. No leg pain or leg swelling. OBJECTIVE: GENERAL: In no acute distress. VITAL SIGNS: Temperature is 98, heart rate 63, respiratory rate is 20, blood pressure 106/63. HEENT: Moist mucous membrane. Crowded airway. Mallampati score is 4. NECK: Supple. No JVD. LUNGS: Fair airflow with rhonchi. HEART: S1 and S2. ABDOMEN: Soft and nontender. No organomegaly. EXTREMITIES: No edema. NEUROLOGICAL: Awake and alert. Follows simple command. MEDICATIONS: He is on Advair 500/50 one puff twice a day, Celexa 20 mg daily, folic acid 1 mg daily, metformin 1000 mg twice a day, [id number] mg daily, insulin coverage, Levemir 40 units subcu at bedtime, Maalox daily p.r.n., mag oxide 400 mg twice a day, Protonix 40 mg daily, Seroquel 300 mg at bedtime, IV fluid normal saline 100 mL per hour was given yesterday, Sonata 5 mg at bedtime, Tenormin 50 mg daily, multivitamins daily, Tylenol p.r.n. basis, Ventolin 2 puffs every 6 hours p.r.n., vitamin B1 100 mg daily, Zestril 2.5 mg daily. LABORATORY DATA: Reviewed. Blood sugar this morning is 137. IMPRESSION AND PLAN: Schizoaffective disorder, chronic obstructive lung disease, sleep apnea syndrome, morbid obesity. Pulmonary point of view, doing okay. Continue inhaled bronchodilator and current CPAP use. Careful with sedation. Fall precaution. Thank you and we will follow with you. Braden Corley MD
[2018-05-08] MEDS: Insulin Detemir 100 units/ml Vial (Levemir) SC SCH (21:54)
[2018-05-09] MEDS: Fluticasone-Salmeterol 500-50mcg Diskus INH SCH ×2 (06:07→17:05)
[2018-05-09] MEDS: Multivitamin Therapeutic Tab PO SCH (08:40)
[2018-05-09] MEDS: Magnesium Oxide 400 mg Tab UD PO SCH ×2 (08:41→16:39)
[2018-05-09] MEDS: Pantoprazole 40 mg EC Tab PO SCH (08:41)
[2018-05-09] MEDS: Insulin Reg-LOW-Coverage SC SCH ×4 (08:58→21:21)
--- NOTE | 2018-05-09 10:51 | PCM.PYCHPN ---
Psychiatric Progress Note - Psychiatric Progress Note Patient seen today, length of contact: 30 minutes Problems Identified/Issues Discussed: I reviewed recent notes and patient was interviewed at bedside this morning. He is familiar to me from prior interviews last weekend. Patient remains oriented x3 and superficially cooperative with interview questions. Seems more alert and focused today though he reports continued depression, fatigue and anxiety--generally unchanged since admission. Affect remains constricted without evidence of perceptual disturbance. Patient is s/p two ECT treatments and remains agreeable to continue this treatment modality. Denies any side effects or new discomfort or pain. Staff note that patient seems to be improving in reactivity and range on unit. He is more visible on the unit. He attends and participates in groups. There were no behavioral issues over the weekend thus far. Diagnostic Results: as per h/o: schizoaffective, bipolar type r/o substance induced mood disorder h/o alcohol abuse/dependence Medication Change: No ( ) Medical Record Reviewed: Yes Mental Status Examination - Cognitive Function Orientation: Person, Place, Situation Memory: Intact Attention: WNL Concentration: Poor Association: Loose Fund of Knowledge: Poor - Mood Mood: Depressed, Anxious - Affect Affect: Constricted - Speech Speech: Appropriate - Formal Thought Process Formal Thought Process: No Impairment - Suicidal Ideation Suicidal Ideation: No - Homicidal Ideation Homicidal Ideation: No Goal/Treatment Plan - Goal/Treatment Plan Need for Continued Stay: Remain at risks for inpatient hospitalization, Severe depression anxiety, Discharge may exacerbated symptoms, Failed transitioning, Severe functional impairment Progress Toward Problem(s) and Goals/Treatment Plan: * c/w current treatment and plan~ patient is s/p two ECT and tolerating well. * No new weekend lab results thus far * Vitals reviewed and noted below: Selected Entries 05/08/18 05/08/18 07:16 16:42 Temperature 97.3 F L Pulse Rate 63 68 Respiratory 20 Rate Blood Pressure 106/63 117/78 Estimated Date of D/C: 05/15/18
[2018-05-09] MEDS: Magnesium Hydroxide Susp 30 ml UD PO PRN (15:02)
--- NOTE | 2018-05-09 19:51 | CP.PCM.PN ---
Subjective - Date & Time of Evaluation Date of Evaluation: 05/09/18 Time of Evaluation: 07:45 - Subjective Subjective: Patient is in the behavioral care unit. He is admitted with depression. Objective - Vital Signs/Intake and Output Vital Signs (last 24 hours): Temp Pulse Resp BP Pulse Ox 98.1 F 71 20 106/64 98 05/09/18 07:18 05/09/18 07:18 05/09/18 07:18 05/09/18 07:18 05/07/18 11:40 - Medications Medications: Current Medications Acetaminophen (Tylenol 325mg Tab) 650 mg PO Q6H PRN PRN Reason: Pain, severe (8-10) Last Admin: 05/07/18 12:53 Dose: 650 mg Al Hydrox/Mg Hydrox/Simethicone (Maalox Plus 30 Ml) 30 ml PO DAILY PRN PRN Reason: Indigestion / Heartburn Albuterol (Ventolin Hfa 90 Mcg/Actuation (8 G)) 2 puff IH [id number] PRN PRN Reason: Shortness of Breath Atenolol (Tenormin) 50 mg PO DAILY [facility] Last Admin: 05/09/18 08:40 Dose: 50 mg Citalopram Hydrobromide (Celexa) 20 mg PO DAILY [facility] Last Admin: 05/09/18 08:40 Dose: 20 mg Folic Acid (Folic Acid) 1 mg PO DAILY [facility] Last Admin: 05/09/18 08:40 Dose: 1 mg Gabapentin (Neurontin) 300 mg PO TID [facility]; Protocol Last Admin: 05/09/18 17:04 Dose: 300 mg Glipizide (Glucotrol) 10 mg PO DAILY [facility] Last Admin: 05/09/18 08:40 Dose: 10 mg Sodium Chloride (Sodium Chloride 0.9%) 1,000 mls @ 100 mls/hr IV .Q10H [facility] Insulin Detemir (Levemir) 40 unit SC HS [facility] Last Admin: 05/08/18 21:54 Dose: 40 u Insulin Human Regular (Humulin R Low) 0 units SC ACHS [facility]; Protocol Last Admin: 05/09/18 16:54 Dose: 1 unit Lisinopril (Zestril) 2.5 mg PO DAILY [facility] Last Admin: 05/09/18 08:41 Dose: 2.5 mg Magnesium Hydroxide (Milk Of Magnesia) 30 ml PO DAILY PRN PRN Reason: Constipation Last Admin: 05/09/18 15:02 Dose: 30 ml Magnesium Oxide (Mag-Ox) 400 mg PO BID [facility] Last Admin: 05/09/18 16:39 Dose: 400 mg Metformin HCl (Glucophage) 1,000 mg PO BID [facility] Last Admin: 05/09/18 16:39 Dose: 1,000 mg Multivitamins (Thera Tab) 1 tab PO 0800 [facility] Last Admin: 05/09/18 08:40 Dose: 1 tab Pantoprazole Sodium (Protonix Ec Tab) 40 mg PO DAILY [facility] Last Admin: 05/09/18 08:41 Dose: 40 mg Quetiapine Fumarate (Seroquel) 300 mg PO HS [facility]; Protocol Last Admin: 05/08/18 21:56 Dose: 300 mg Fluticasone/Salmeterol (Advair Diskus 500/50) 1 puff INH Q12 [facility] Last Admin: 05/09/18 17:05 Dose: 1 puff Thiamine HCl (Vitamin B1 Tab) 100 mg PO DAILY [facility] Last Admin: 05/09/18 08:41 Dose: 100 mg Zaleplon (Sonata) 10 mg PO HS [facility] Last Admin: 05/08/18 21:30 Dose: 10 mg - Labs Labs: 04/28/18 09:30 05/06/18 07:20 - Constitutional Appears: No Acute Distress - Head Exam Head Exam: ATRAUMATIC, NORMOCEPHALIC - Respiratory Exam Respiratory Exam: Clear to Ausculation Bilateral, NORMAL BREATHING PATTERN - Cardiovascular Exam Cardiovascular Exam: REGULAR RHYTHM, +S1, +S2 - GI/Abdominal Exam GI & Abdominal Exam: Soft, Normal Bowel Sounds. absent: Tenderness Assessment and Plan - Assessment and Plan (Free Text) Assessment: DMII History of alcohol abuse GERD Hypertension Depression Plan: Patient has received 2 ECT treatments with the psychiatrist. continue behavioral therapy as per psychiatry. continue medications for diabetes, hypertension and reflux. Blood pressure is well controlled. Blood sugar is reasonably controlled.
[2018-05-09] MEDS: Insulin Detemir 100 units/ml Vial (Levemir) SC SCH (21:22)
--- NOTE | 2018-05-09 21:53 | PN ---
DATE: 05/09/2018SUBJECTIVE: He is out of bed to chair, having lunch. is at bedside. Night was unremarkable, complaining about insomnia. No cough, no sputum production. No nausea, vomiting, or diarrhea. No leg pain, no leg swelling. OBJECTIVE: GENERAL: In no acute distress. VITAL SIGNS: Temperature 98, heart rate 71, respiratory rate is 20, blood pressure 106/64. HEENT: Moist mucous membrane. Crowded airway. Mallampati score is 4. NECK: Supple. No JVD. LUNGS: Fair airflow with few rhonchi. HEART: S1 and S2. ABDOMEN: Soft and nontender. No organomegaly. EXTREMITIES: No edema. NEUROLOGICAL: Awake and alert. Follows simple commands. MEDICATIONS: He is on Advair 500/50 one puff twice a day, also on Celexa 20 mg daily, folic acid 1 mg daily, metformin 1000 mg twice a day, glipizide 10 mg daily, insulin coverage, Levemir 40 units subcu at bedtime, mag oxide 400 mg twice a day, milk of magnesia 30 mL p.o. daily p.r.n., Neurontin 300 mg 3 times a day, Protonix 40 mg daily, Seroquel 300 mg at bedtime, Sonata 10 mg at bedtime, Tenormin 50 mg daily, multivitamins daily, Tylenol p.r.n., vitamin B1 100 mg daily, Zestril 2.5 mg daily. LABORATORY DATA: Reviewed. Blood sugar yesterday was 173. IMPRESSION AND PLAN: Schizoaffective disorder, chronic obstructive lung disease, sleep apnea syndrome, morbid obesity, insomnia. Spoke to at bedside. All the questions answered. Continue sedative. Encourage CPAP use. Keep head at 45 degree. Avoid smoking. Fall precaution. Thank you and we will follow with you. Braden Corley MD
[2018-05-10] MEDS: Fluticasone-Salmeterol 500-50mcg Diskus INH SCH ×2 (07:25→17:57)
[2018-05-10] MEDS: Insulin Reg-LOW-Coverage SC SCH ×4 (08:27→22:39)
[2018-05-10] MEDS: Magnesium Oxide 400 mg Tab UD PO SCH ×2 (08:34→17:37)
[2018-05-10] MEDS: Multivitamin Therapeutic Tab PO SCH (08:34)
[2018-05-10] MEDS: Pantoprazole 40 mg EC Tab PO SCH (08:34)
--- NOTE | 2018-05-10 10:24 | PN ---
DATE: 05/10/2018 LOCATION: The patient is in [facility] Unit in 518, bed 1. SUBJECTIVE: The patient admitted with depression. The patient also has history of diabetes, chronic lung disease, hypertension. The patient also had history of alcoholism. He is seen this morning, he had received 2 ECT treatments in the hospital. PHYSICAL EXAMINATION: VITAL SIGNS: This morning, his pulse is 59, blood pressure 125/74, respirations are 20, O2 sat is 98% on room air. HEENT: The patient's head is normocephalic. HEART: Normal sinus rhythm. S1, S2 present. LUNGS: Clear. ABDOMEN: Soft. Liver, spleen not palpable. Obesity present. GRAPHIC EDITOR: No focal deficits. LABORATORY DATA: The patient's blood work remains the same. MEDICATIONS: The patient is on Advair twice a day for chronic lung disease. The patient has history of smoking. The patient is on folic acid, metformin, insulin, glipizide. The patient is also getting magnesium oxide, gabapentin, pantoprazole, Seroquel, Sonata and atenolol which is Tenormin 50 mg daily. ASSESSMENT AND PLAN: The patient is still depressed this morning. He says he is very tired and not able to sleep. We will continue current management. Follow up with Care in the unit. Kenyon Decker MD
--- NOTE | 2018-05-10 10:32 | PCM.PYCHPN ---
Psychiatric Progress Note - Psychiatric Progress Note Patient seen today, length of contact: 30 minutes Problems Identified/Issues Discussed: I reviewed recent notes and patient was interviewed at bedside this morning. He is familiar to me from prior interviews last weekend. Patient remains oriented x3 and superficially cooperative with interview questions. Seems more alert, focused and engaged this weekend though he reports continued depression, fatigue and anxiety--generally unchanged since admission. Affect remains constricted without evidence of perceptual disturbance. Patient is s/p two ECT treatments and remains agreeable to continue this treatment modality. Denies any side effects or new discomfort or pain. Utilizing CPAP overnight but still feels sleep quality is restless and poor. Staff note that patient seems to be improving in reactivity and range on unit. He is more visible on the unit. He attends and participates in groups. There were no behavioral issues over the weekend thus far. Diagnostic Results: as per h/o: schizoaffective, bipolar type r/o substance induced mood disorder h/o alcohol abuse/dependence Medication Change: No ( ) Medical Record Reviewed: Yes Mental Status Examination - Cognitive Function Orientation: Person, Place, Situation Memory: Intact Attention: WNL Concentration: Poor Association: Loose Fund of Knowledge: Poor - Mood Mood: Depressed, Anxious - Affect Affect: Constricted - Speech Speech: Appropriate - Formal Thought Process Formal Thought Process: No Impairment - Suicidal Ideation Suicidal Ideation: No - Homicidal Ideation Homicidal Ideation: No Goal/Treatment Plan - Goal/Treatment Plan Need for Continued Stay: Remain at risks for inpatient hospitalization, Severe depression anxiety, Discharge may exacerbated symptoms, Failed transitioning, Severe functional impairment Progress Toward Problem(s) and Goals/Treatment Plan: * c/w current treatment and plan~ patient is s/p two ECT and tolerating well. * Appreciate f/u by Dr. Decker on 05/09/18~Blood pressure is well controlled. Blood sugar is reasonably controlled. * Appreciate f/u by on 05/09/18~encourage CPAP, keep head at 45 degrees * No new weekend lab results thus far * Vitals reviewed and noted below: Selected Entries 05/09/18 05/09/18 07:18 22:00 Temperature 98.1 F Pulse Rate 71 70 Respiratory 20 Rate Blood Pressure 106/64 Estimated Date of D/C: 05/15/18
[2018-05-10] MEDS: Insulin Detemir 100 units/ml Vial (Levemir) SC SCH (21:34)
--- NOTE | 2018-05-11 00:36 | PN ---
DATE: 05/10/2018 PULMONARY PROGRESS NOTE REFERRING PHYSICIAN: Shanon Lazo MD SUBJECTIVE: He is sitting up in a chair. Night was unremarkable. Get better nicely . No headache. No rhinitis. No nausea, vomiting or diarrhea. No leg pain or leg swelling. OBJECTIVE: GENERAL: In no acute distress. VITAL SIGNS: Temperature is 98, heart rate is 59, respiratory rate is 20, blood pressure 127/74. HEENT: Moist mucous membranes. Crowded airway. Mallampati score is 4. NECK: Supple. No JVD. LUNGS: Have a fair airflow with rhonchi. HEART: S1 and S2. ABDOMEN: Soft, nontender. No organomegaly. EXTREMITIES: No edema. NEUROLOGIC: Awake and alert. Follows simple commands. MEDICATIONS: He is on Advair 500/50 one puff twice a day, Celexa 20 mg daily, folic acid 1 mg daily, metformin 1000 mg twice a day, glipizide 10 mg daily, insulin coverage, Levemir 40 units subcu at bedtime, MiraLax 30 mL p.r.n., mag oxide 400 mg twice a day, Neurontin 300 mg 3 times a day, Protonix 40 mg daily, Seroquel 300 mg at bedtime, IV fluid normal saline 100 mL per hour was given during ECT therapy, Sonata 10 mg at bedtime, Tenormin 50 mg daily, multivitamins daily, Tylenol p.r.n., Ventolin 2 puffs every 6 hours p.r.n., vitamin B1 100 mg daily, Zestril 2.5 mg daily. LABORATORY DATA: Reviewed. No new lab is available since yesterday. IMPRESSION AND PLAN: Schizoaffective disorder, chronic obstructive lung disease, sleep apnea syndrome, morbid obesity, insomnia. Pulmonary point of view, he is doing okay. Continue inhaled bronchodilator. Encourage continuous positive airway pressure use. Careful with sedation. Fall precaution. Thank you and we will follow with you. Braden Corley MD
[2018-05-11] MEDS: Fluticasone-Salmeterol 500-50mcg Diskus INH SCH ×2 (06:10→18:01)
--- NOTE | 2018-05-11 08:00 | CP.PCM.PN ---
Subjective - Date & Time of Evaluation Date of Evaluation: 05/11/18 Time of Evaluation: 07:45 - Subjective Subjective: Patient is seen this morning. He has no medical complaints. Objective - Vital Signs/Intake and Output Vital Signs (last 24 hours): Temp Pulse Resp BP Pulse Ox 97.7 F 59 L 19 109/69 98 05/11/18 07:00 05/11/18 07:00 05/11/18 07:00 05/11/18 07:00 05/07/18 11:40 - Medications Medications: Current Medications Acetaminophen (Tylenol 325mg Tab) 650 mg PO Q6H PRN PRN Reason: Pain, severe (8-10) Last Admin: 05/07/18 12:53 Dose: 650 mg Al Hydrox/Mg Hydrox/Simethicone (Maalox Plus 30 Ml) 30 ml PO DAILY PRN PRN Reason: Indigestion / Heartburn Albuterol (Ventolin Hfa 90 Mcg/Actuation (8 G)) 2 puff IH [id number] PRN PRN Reason: Shortness of Breath Atenolol (Tenormin) 50 mg PO DAILY [facility] Last Admin: 05/10/18 08:32 Dose: 50 mg Citalopram Hydrobromide (Celexa) 20 mg PO DAILY [facility] Last Admin: 05/10/18 08:34 Dose: 20 mg Folic Acid (Folic Acid) 1 mg PO DAILY [facility] Last Admin: 05/10/18 08:34 Dose: 1 mg Gabapentin (Neurontin) 300 mg PO TID [facility]; Protocol Last Admin: 05/10/18 17:37 Dose: 300 mg Glipizide (Glucotrol) 10 mg PO DAILY [facility] Last Admin: 05/10/18 08:34 Dose: 10 mg Sodium Chloride (Sodium Chloride 0.9%) 1,000 mls @ 100 mls/hr IV .Q10H [facility] Insulin Detemir (Levemir) 40 unit SC HS [facility] Last Admin: 05/10/18 21:34 Dose: 40 u Insulin Human Regular (Humulin R Low) 0 units SC ACHS [facility]; Protocol Last Admin: 05/10/18 22:39 Dose: Not Given Lisinopril (Zestril) 2.5 mg PO DAILY [facility] Last Admin: 05/10/18 08:34 Dose: 2.5 mg Magnesium Hydroxide (Milk Of Magnesia) 30 ml PO DAILY PRN PRN Reason: Constipation Last Admin: 05/09/18 15:02 Dose: 30 ml Magnesium Oxide (Mag-Ox) 400 mg PO BID [facility] Last Admin: 05/10/18 17:37 Dose: 400 mg Metformin HCl (Glucophage) 1,000 mg PO BID [facility] Last Admin: 05/10/18 17:37 Dose: 1,000 mg Multivitamins (Thera Tab) 1 tab PO 0800 [facility] Last Admin: 05/10/18 08:34 Dose: 1 tab Pantoprazole Sodium (Protonix Ec Tab) 40 mg PO DAILY [facility] Last Admin: 05/10/18 08:34 Dose: 40 mg Quetiapine Fumarate (Seroquel) 300 mg PO HS [facility]; Protocol Last Admin: 05/10/18 21:33 Dose: 300 mg Fluticasone/Salmeterol (Advair Diskus 500/50) 1 puff INH Q12 [facility] Last Admin: 05/11/18 06:10 Dose: 1 puff Thiamine HCl (Vitamin B1 Tab) 100 mg PO DAILY [facility] Last Admin: 05/10/18 08:34 Dose: 100 mg Zaleplon (Sonata) 10 mg PO HS [facility] Last Admin: 05/10/18 21:33 Dose: 10 mg - Labs Labs: 04/28/18 09:30 05/06/18 07:20 - Constitutional Appears: No Acute Distress - Head Exam Head Exam: ATRAUMATIC, NORMOCEPHALIC - Respiratory Exam Respiratory Exam: Clear to Ausculation Bilateral, NORMAL BREATHING PATTERN - Cardiovascular Exam Cardiovascular Exam: REGULAR RHYTHM, +S1, +S2 - GI/Abdominal Exam GI & Abdominal Exam: Soft, Normal Bowel Sounds. absent: Tenderness - Neurological Exam Neurological Exam: Alert, Awake, Oriented x3 Assessment and Plan - Assessment and Plan (Free Text) Assessment: DMII HTN Sleep Apnea Obesity Chronic lung disease Plan: Patient is on respiratory treatments for chronic lung disease. Blood pressure is well controlled. Patient is medically cleared for further ECT treatments if advised by psychiatry. continue behavioral treatment as per psychiatry.
[2018-05-11] MEDS: Multivitamin Therapeutic Tab PO SCH (08:39)
[2018-05-11] MEDS: Magnesium Oxide 400 mg Tab UD PO SCH ×2 (08:39→16:10)
[2018-05-11] MEDS: Pantoprazole 40 mg EC Tab PO SCH (08:39)
[2018-05-11] MEDS: Insulin Reg-LOW-Coverage SC SCH ×4 (08:40→21:41)
[2018-05-11] MEDS: Magnesium Hydroxide Susp 30 ml UD PO PRN (14:43)
--- NOTE | 2018-05-11 16:35 | PCM.PYCHPN ---
Psychiatric Progress Note - Psychiatric Progress Note Patient seen today, length of contact: 30 minutes Patient Chief Complaint: "I am little better, still anxious, still have difficulties to sleep" Problems Identified/Issues Discussed: Suicide/ homicide prevention, past psychiatric h/o, current psychiatric symptoms, medical problems, risk/benefits and alternatives of medications, medications compliance, coping strategies, substance abuse h/o, relapse prevention, importance of follow up with psychiatrist and therapist, discharge plan. Medical Problems: see HPI Diagnostic Results: 04/28/18 09:30 04/28/18 09:30 Lab Results 04/30/18 07:22: POC Glucose (mg/dL) 172 H 04/29/18 21:09: POC Glucose (mg/dL) 199 H 04/29/18 16:29: POC Glucose (mg/dL) 215 H 04/29/18 11:05: POC Glucose (mg/dL) 221 H 04/29/18 07:19: POC Glucose (mg/dL) 140 H 04/28/18 21:13: POC Glucose (mg/dL) 263 H 04/28/18 16:33: POC Glucose (mg/dL) 224 H 04/28/18 10:20: Urine Opiates Screen Negative, Urine Methadone Screen Negative, Ur Barbiturates Screen Negative, Ur Phencyclidine Scrn Negative, Ur Amphetamines Screen Negative, U Benzodiazepines Scrn Positive H, U Oth Cocaine Metabols Negative, U Cannabinoids Screen Negative 04/28/18 10:20: Urine Color Yellow, Urine Appearance Clear, Urine pH 5.5, Ur Specific [place] >= 1.030, Urine Protein Trace H, Urine Glucose (UA) 500 H, Urine Ketones 15 H, Urine Blood Negative, Urine Nitrate Negative, Urine Bilirubin Negative, Urine Urobilinogen 0.2, Ur Leukocyte Esterase Negative, Urine RBC 0 - 2, Urine WBC 1 - 3, Urine Bacteria Mod 04/28/18 09:30: Alcohol, Quantitative 134 H 04/28/18 09:30: Salicylates < 1 L, Acetaminophen < 10.0 L 04/28/18 09:30: Sodium 139, Potassium 4.0, Chloride 99, Carbon Dioxide 25, Anion Gap 19, BUN 18, Creatinine 0.9, Est GFR ( Amer) > 60, Est GFR (Non-Af Amer) > 60, Random Glucose 235 H, Calcium 9.1, Magnesium 1.5 L, Total Bilirubin 0.3, AST 35, ALT 55, Alkaline Phosphatase 74, Total Protein 7.3, Albumin 4.5, Globulin 2.8, Albumin/Globulin Ratio 1.6 04/28/18 09:30: WBC 8.4, RBC 4.79, Hgb 14.6, Hct 43.3, MCV 90.4, MCH 30.5, MCHC 33.7, RDW 14.1, Plt Count 309, MPV 9.4, Gran % 66.8, Lymph % (Auto) 27.5, Bibb % (Auto) 4.8, Eos % (Auto) 0.8 L, Baso % (Auto) 0.1, Gran # 5.58, Lymph # (Auto) 2.3, Bibb # (Auto) 0.4, Eos # (Auto) 0.1, Baso # (Auto) 0.01 Vital Signs Temp Pulse Resp BP Pulse Ox 04/30/18 07:29 97.7 F 76 20 111/69 04/29/18 16:00 74 139/92 H 04/29/18 09:13 77 150/97 H 04/29/18 09:11 77 150/97 H 04/29/18 07:00 97.3 F L 77 20 150/97 H 04/28/18 15:42 17 04/28/18 13:45 96 04/28/18 13:40 90 17 128/80 96 04/28/18 12:53 88 16 125/78 96 04/28/18 11:27 90 16 127/80 96 04/28/18 10:00 94 H 17 126/85 96 04/28/18 09:15 97.8 F 98 H 16 125/87 94 L Temp Pulse Resp BP Pulse Ox 97.3 F L 69 20 105/63 96 05/04/18 07:19 05/04/18 08:36 05/04/18 07:19 05/04/18 08:36 04/28/18 13:45 EKG nonspecific changes. DSM 5 Symptoms Update: shortly pt is 25yo male with reported h/o schizoaffective disorder, bipolar type, h/o alcohol use disorder, h/o multiple previous psychiatric admissions (most recent was [facility] in 04/22/2018, [place] [facility] [place] worsening of his depression, suicidal ideation, pt made a request for ECT treatment, prior to this admission pt had a plan to overdose on pills, pt's called [facility] clinic and find out that ECT treatment available in this Hospital. as per history: worsening of depression for the past 10years more than 10psychiatric admissions, including state hospitalization in [facility] "for six months, I was doing horrible still". multiple medication trials adequate doses "I was on all medications under this sun" coping with depression with alcohol and h/o cocaine abuse. h/o bipolar disorder vs schizoaffective disorder bipolar type. last admission to [facility] April 2018, pt overdosed on Atenolol pills and drinking 2pints of vodka. 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 October/November 2017 pt was admitted involuntary at [facility]. December 2017 for the same presenting problems through mobile crisis. Chronic underlying suicidal ideation. pt was seen next to the Nursing station pt reported slight improvement with his symptoms, c/o insomnia and anxiety pt reported that he still has passive wish to be ECT # 2 05/07/18, pt had BL treatment, 100% or 2xST/ 0.3 MS BL, 40Hz, 8S/154 mc. pt had prolonged seizues versed was given. 05/05/18 ECT #1, pt had BL treatment, 50% or 1,5xST/ 0.3 MS BL, 30Hz, 8S/115.2 mc. no memory problems, no side effects from the ECT treatment Impression: h/o bipolar disorder, most recent episode mixed r/o schizoaffective disorder bipolar type r/o substance induced mood disorder alohol abuse/dependence Medication Change: Yes (gabapentin increased) Medical Record Reviewed: Yes Mental Status Examination - Cognitive Function Orientation: Person, Place, Situation Memory: Intact Attention: WNL Concentration: Poor Association: Loose Fund of Knowledge: Poor - Mood Mood: Depressed, Anxious - Affect Affect: Constricted - Speech Speech: Appropriate - Formal Thought Process Formal Thought Process: No Impairment - Suicidal Ideation Suicidal Ideation: No - Homicidal Ideation Homicidal Ideation: No Goal/Treatment Plan - Goal/Treatment Plan Need for Continued Stay: Remain at risks for inpatient hospitalization, Severe depression anxiety, Discharge may exacerbated symptoms, Failed transitioning, Severe functional impairment Progress Toward Problem(s) and Goals/Treatment Plan: Milieu/structure/supportive therapy Medical consult appreciated, see medical team note for more detailed info SW consultation for discharge plan and social issues Med management seroquel 300mg po hs for mood stabilization and augment for MDD gabapentin was increased to600 mg 3 times a day Celexa 20 mg daily for depression and anxiety #1 ECT treatment 05/05/18, tolerated well #2 ECT treatment 05/07/2018, tolerated well #3 ECT treatment 05/12/18 MVI/thiamine/folic acid Family involvement Follow up on labs Will monitor closely Pt was educated about risk/benefits and alternatives of medications, coping strategies (safety plan, suicide prevention), relapse prevention, importance of follow up with psychiatrist and therapist, stay away from drugs/alcohol/smoking Estimated Date of D/C: 05/15/18
[2018-05-11] MEDS: Insulin Detemir 100 units/ml Vial (Levemir) SC SCH (21:41)
--- NOTE | 2018-05-12 04:04 | PN ---
DATE: 05/11/2018 PULMONARY PROGRESS NOTE REFERRING PHYSICIAN: Shanon Lazo MD SUBJECTIVE: He is out of bed to chair. Night was unremarkable. Claiming he has insomnia. No headache. No rhinitis. No nausea. No leg pain or leg swelling. OBJECTIVE: GENERAL: In no acute distress. VITAL SIGNS: Temperature 98, heart rate 73, respiratory rate is 20, and blood pressure 144/95. HEENT: Moist mucous membrane. Crowded airway. Mallampati score is 4. NECK: Supple. No JVD. LUNGS: Have a fair airflow with rhonchi. HEART: S1 and S2. ABDOMEN: Soft and nontender. No organomegaly. EXTREMITIES: No edema. NEUROLOGIC: Awake and alert. Follows simple command. MEDICATIONS: He is on Advair 500/50 one puff twice a day, Celexa 20 mg daily, folic acid 1 mg daily, metformin 1000 mg twice a day, Glucotrol 10 mg daily, insulin coverage, Levemir 40 units subcutaneously at bedtime, magnesium oxide 400 mg twice a day, milk of magnesia 30 mL daily, gabapentin 600 mg three times a day, Protonix 40 mg daily, Seroquel 300 mg at bedtime, IV fluid normal saline 100 mL per hour, Sonata 10 mg at bedtime, Tenormin 50 mg daily, multivitamins daily, Tylenol p.r.n., Ventolin two puffs every 6 hours p.r.n., vitamin B 100 mg daily, Zestril and 2.5 mg daily. LABORATORY DATA: Shows blood sugar 149. IMPRESSION AND PLAN: Schizoaffective disorder, chronic obstructive lung disease, sleep apnea syndrome, morbid obesity, and insomnia. Pulmonary point of view doing okay. Encourage continuous positive airway pressure use. Keep head at 45 degrees. Inhaled bronchodilator. Gastric prophylaxis. If sedated, needs close cardiopulmonary monitoring. Thank you and we will follow with you. Braden Corley MD
--- NOTE | 2018-05-12 07:59 | CP.PCM.PN ---
Subjective - Date & Time of Evaluation Date of Evaluation: 05/12/18 Time of Evaluation: 07:35 - Subjective Subjective: Patient is admitted to the hospital with depression. Objective - Vital Signs/Intake and Output Vital Signs (last 24 hours): Temp Pulse Resp BP Pulse Ox 98.1 F 82 20 118/78 98 05/12/18 07:27 05/12/18 07:27 05/12/18 07:27 05/12/18 07:27 05/07/18 11:40 - Medications Medications: Current Medications Acetaminophen (Tylenol 325mg Tab) 650 mg PO Q6H PRN PRN Reason: Pain, severe (8-10) Last Admin: 05/07/18 12:53 Dose: 650 mg Al Hydrox/Mg Hydrox/Simethicone (Maalox Plus 30 Ml) 30 ml PO DAILY PRN PRN Reason: Indigestion / Heartburn Albuterol (Ventolin Hfa 90 Mcg/Actuation (8 G)) 2 puff IH [id number] PRN PRN Reason: Shortness of Breath Atenolol (Tenormin) 50 mg PO DAILY [facility] Last Admin: 05/11/18 08:42 Dose: Not Given Citalopram Hydrobromide (Celexa) 20 mg PO DAILY [facility] Last Admin: 05/11/18 08:40 Dose: 20 mg Folic Acid (Folic Acid) 1 mg PO DAILY [facility] Last Admin: 05/11/18 08:39 Dose: 1 mg Gabapentin (Neurontin) 600 mg PO TID [facility]; Protocol Last Admin: 05/11/18 18:02 Dose: 600 mg Glipizide (Glucotrol) 10 mg PO DAILY [facility] Last Admin: 05/11/18 08:40 Dose: 10 mg Sodium Chloride (Sodium Chloride 0.9%) 1,000 mls @ 100 mls/hr IV .Q10H [facility] Insulin Detemir (Levemir) 40 unit SC HS [facility] Last Admin: 05/11/18 21:41 Dose: 40 u Insulin Human Regular (Humulin R Low) 0 units SC ACHS [facility]; Protocol Last Admin: 05/11/18 21:41 Dose: Not Given Lisinopril (Zestril) 2.5 mg PO DAILY [facility] Last Admin: 05/11/18 08:42 Dose: 2.5 mg Magnesium Hydroxide (Milk Of Magnesia) 30 ml PO DAILY PRN PRN Reason: Constipation Last Admin: 05/11/18 14:43 Dose: 30 ml Magnesium Oxide (Mag-Ox) 400 mg PO BID [facility] Last Admin: 05/11/18 16:10 Dose: 400 mg Metformin HCl (Glucophage) 1,000 mg PO BID [facility] Last Admin: 05/11/18 16:10 Dose: 1,000 mg Multivitamins (Thera Tab) 1 tab PO 0800 [facility] Last Admin: 05/11/18 08:39 Dose: 1 tab Pantoprazole Sodium (Protonix Ec Tab) 40 mg PO DAILY [facility] Last Admin: 05/11/18 08:39 Dose: 40 mg Quetiapine Fumarate (Seroquel) 300 mg PO HS [facility]; Protocol Last Admin: 05/11/18 21:42 Dose: 300 mg Fluticasone/Salmeterol (Advair Diskus 500/50) 1 puff INH Q12 [facility] Last Admin: 05/11/18 18:01 Dose: 1 puff Thiamine HCl (Vitamin B1 Tab) 100 mg PO DAILY [facility] Last Admin: 05/11/18 08:39 Dose: 100 mg Zaleplon (Sonata) [address] [facility] Last Admin: 05/11/18 21:42 Dose: 10 mg - Labs Labs: 04/28/18 09:30 05/06/18 07:20 - Constitutional Appears: No Acute Distress - Head Exam Head Exam: ATRAUMATIC, NORMOCEPHALIC - Respiratory Exam Respiratory Exam: Clear to Ausculation Bilateral, NORMAL BREATHING PATTERN - Cardiovascular Exam Cardiovascular Exam: REGULAR RHYTHM, +S1, +S2 - GI/Abdominal Exam GI & Abdominal Exam: Soft, Normal Bowel Sounds. absent: Tenderness - Neurological Exam Neurological Exam: Alert, Awake, Oriented x3 Assessment and Plan - Assessment and Plan (Free Text) Assessment: Schizoaffective disorder HTN DMII Plan: continue behavioral treatment continue medications will check CBC, CMP
[2018-05-12] MEDS: Insulin Reg-LOW-Coverage SC SCH ×4 (08:27→22:36)
[2018-05-12] MEDS ORDERED: Propofol 10 mg/ml Inj (20 ML) ONE (14:17)
[2018-05-12] MEDS ORDERED: Succinylcholine 200 mg/10 ml Inj IV ONE (14:18)
[2018-05-12] MEDS ORDERED: Lactated Ringer's 1,000 ML IV SCH (15:00)
[2018-05-12] MEDS: Fluticasone-Salmeterol 500-50mcg Diskus INH SCH ×2 (16:31→17:43)
--- NOTE | 2018-05-12 16:32 | PCM.PYCHPN ---
Psychiatric Progress Note - Psychiatric Progress Note Patient seen today, length of contact: 30 minutes Patient Chief Complaint: "I am little better, still anxious, still have difficulties to sleep" Problems Identified/Issues Discussed: Suicide/ homicide prevention, past psychiatric h/o, current psychiatric symptoms, medical problems, risk/benefits and alternatives of medications, medications compliance, coping strategies, substance abuse h/o, relapse prevention, importance of follow up with psychiatrist and therapist, discharge plan. Medical Problems: see HPI Diagnostic Results: 04/28/18 09:30 04/28/18 09:30 Lab Results 04/30/18 07:22: POC Glucose (mg/dL) 172 H 04/29/18 21:09: POC Glucose (mg/dL) 199 H 04/29/18 16:29: POC Glucose (mg/dL) 215 H 04/29/18 11:05: POC Glucose (mg/dL) 221 H 04/29/18 07:19: POC Glucose (mg/dL) 140 H 04/28/18 21:13: POC Glucose (mg/dL) 263 H 04/28/18 16:33: POC Glucose (mg/dL) 224 H 04/28/18 10:20: Urine Opiates Screen Negative, Urine Methadone Screen Negative, Ur Barbiturates Screen Negative, Ur Phencyclidine Scrn Negative, Ur Amphetamines Screen Negative, U Benzodiazepines Scrn Positive H, U Oth Cocaine Metabols Negative, U Cannabinoids Screen Negative 04/28/18 10:20: Urine Color Yellow, Urine Appearance Clear, Urine pH 5.5, Ur Specific [place] >= 1.030, Urine Protein Trace H, Urine Glucose (UA) 500 H, Urine Ketones 15 H, Urine Blood Negative, Urine Nitrate Negative, Urine Bilirubin Negative, Urine Urobilinogen 0.2, Ur Leukocyte Esterase Negative, Urine RBC 0 - 2, Urine WBC 1 - 3, Urine Bacteria Mod 04/28/18 09:30: Alcohol, Quantitative 134 H 04/28/18 09:30: Salicylates < 1 L, Acetaminophen < 10.0 L 04/28/18 09:30: Sodium 139, Potassium 4.0, Chloride 99, Carbon Dioxide 25, Anion Gap 19, BUN 18, Creatinine 0.9, Est GFR ( Amer) > 60, Est GFR (Non-Af Amer) > 60, Random Glucose 235 H, Calcium 9.1, Magnesium 1.5 L, Total Bilirubin 0.3, AST 35, ALT 55, Alkaline Phosphatase 74, Total Protein 7.3, Albumin 4.5, Globulin 2.8, Albumin/Globulin Ratio 1.6 04/28/18 09:30: WBC 8.4, RBC 4.79, Hgb 14.6, Hct 43.3, MCV 90.4, MCH 30.5, MCHC 33.7, RDW 14.1, Plt Count 309, MPV 9.4, Gran % 66.8, Lymph % (Auto) 27.5, [place] % (Auto) 4.8, Eos % (Auto) 0.8 L, Baso % (Auto) 0.1, Gran # 5.58, Lymph # (Auto) 2.3, [place] # (Auto) 0.4, Eos # (Auto) 0.1, Baso # (Auto) 0.01 Vital Signs Temp Pulse Resp BP Pulse Ox 04/30/18 07:29 97.7 F 76 20 111/69 04/29/18 16:00 74 139/92 H 04/29/18 09:13 77 150/97 H 04/29/18 09:11 77 150/97 H 04/29/18 07:00 97.3 F L 77 20 150/97 H 04/28/18 15:42 17 04/28/18 13:45 96 04/28/18 13:40 90 17 128/80 96 04/28/18 12:53 88 16 125/78 96 04/28/18 11:27 90 16 127/80 96 04/28/18 10:00 94 H 17 126/85 96 04/28/18 09:15 97.8 F 98 H 16 125/87 94 L Temp Pulse Resp BP Pulse Ox 97.3 F L 69 20 105/63 96 05/04/18 07:19 05/04/18 08:36 05/04/18 07:19 05/04/18 08:36 04/28/18 13:45 EKG nonspecific changes. DSM 5 Symptoms Update: shortly pt is 25yo male with reported h/o schizoaffective disorder, bipolar type, h/o alcohol use disorder, h/o multiple previous psychiatric admissions (most recent was [facility] in 04/22/2018, pt came to the [facility] c/o worsening of his depression, suicidal ideation, pt made a request for ECT treatment, prior to this admission pt had a plan to overdose on pills, pt's called [facility] clinic and find out that ECT treatment available in this Hospital. as per history: worsening of depression for the past 10years more than 10psychiatric admissions, including state hospitalization in [facility] "for six months, I was doing horrible still". multiple medication trials adequate doses "I was on all medications under this sun" coping with depression with alcohol and h/o cocaine abuse. h/o bipolar disorder vs schizoaffective disorder bipolar type. last admission to [facility] April 2018, pt overdosed on Atenolol pills and drinking 2pints of vodka. 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 November 2017 pt was admitted involuntary at [facility]. December 2017 for the same presenting problems through mobile crisis. Chronic underlying suicidal ideation. pt was seen prior to ECT treatment, patient signed consent for treatment, patient was willing to continue ECT tx. pt reported slight improvement with his symptoms, c/o insomnia and anxiety "I h ave to get better, I have to be able to enjoy my life", trazodone was offered 100mg hs pt denied thoughts of harming self or others. ECT # 3 05/12/18, pt had BL treatment, 100% or 2xST/ 0.3 MS BL, 40Hz, 8S/154 mc. pt has motor seizures for about 20-25 ceck, then pt had some abnormal UE/LE movements, versed was given. tolerated well, then became talkative, not confused, pt reported that he wants to be better, was talking about his future plans and possible d/c on May 14. ECT # 2 05/07/18, pt had BL treatment, 100% or 2xST/ 0.3 MS BL, 40Hz, 8S/154 mc. pt had prolonged seizues versed was given. 05/05/18 ECT #1, pt had BL treatment, 50% or 1,5xST/ 0.3 MS BL, 30Hz, 8S/115.2 m c. no memory problems, no side effects from the ECT treatment Impression: h/o bipolar disorder, most recent episode mixed r/o schizoaffective disorder bipolar type r/o substance induced mood disorder alohol abuse/dependence Medication Change: Yes (trazodon increased) Medical Record Reviewed: Yes Mental Status Examination - Cognitive Function Orientation: Person, Place, Situation Memory: Intact Attention: WNL Concentration: Poor Association: Loose Fund of Knowledge: Poor - Mood Mood: Depressed, Anxious - Affect Affect: Constricted - Speech Speech: Appropriate - Formal Thought Process Formal Thought Process: No Impairment - Suicidal Ideation Suicidal Ideation: No - Homicidal Ideation Homicidal Ideation: No Goal/Treatment Plan - Goal/Treatment Plan Need for Continued Stay: Remain at risks for inpatient hospitalization, Severe depression anxiety, Discharge may exacerbated symptoms, Failed transitioning, Severe functional impairment Progress Toward Problem(s) and Goals/Treatment Plan: Milieu/structure/supportive therapy Medical consult appreciated, see medical team note for more detailed info SW consultation for discharge plan and social issues Med management seroquel 300mg po hs for mood stabilization and augment for MDD gabapentin 600 mg 3 times a day trazodone 100mg po hs for depression and insomnia sonata 10 mg at the nighttime for insomnia Celexa 20 mg daily for depression and anxiety #1 ECT treatment 05/05/18, tolerated well #2 ECT treatment 05/07/2018, tolerated well #3 ECT treatment 05/12/18 MVI/thiamine/folic acid Family involvement Follow up on labs Will monitor closely Pt was educated about risk/benefits and alternatives of medications, coping strategies (safety plan, suicide prevention), relapse prevention, importance of follow up with psychiatrist and therapist, stay away from drugs/alcohol/smoking Estimated Date of D/C: 05/15/18
[2018-05-12] MEDS: Pantoprazole 40 mg EC Tab PO SCH (16:38)
[2018-05-12] MEDS: Multivitamin Therapeutic Tab PO SCH (16:39)
[2018-05-12] MEDS: Magnesium Hydroxide Susp 30 ml UD PO PRN (16:39)
[2018-05-12] MEDS: Magnesium Oxide 400 mg Tab UD PO SCH ×2 (16:40)
[2018-05-12] MEDS: Insulin Detemir 100 units/ml Vial (Levemir) SC SCH (22:36)
--- NOTE | 2018-05-13 00:23 | PN ---
DATE: 05/12/2018 PULMONARY PROGRESS NOTE REFERRING PHYSICIAN: Shanon Lazo MD. SUBJECTIVE: The patient is sitting up in a chair, just came back from ECT therapy. Still having some insomnia. No cough. No sputum production. No nausea, vomiting, diarrhea, leg pain or leg swelling. OBJECTIVE: GENERAL: In no acute distress. VITAL SIGNS: Temperature is 98, heart rate is 69, respiratory rate is 14, blood pressure 138/91, pulse ox 96% on room air. HEENT: Moist mucous membrane. Crowded airway. Mallampati score is 4. NECK: Supple. No JVD. LUNGS: Have a fair airflow with rhonchi. HEART: S1 and S2. ABDOMEN: Soft, nontender. No organomegaly. EXTREMITIES: No edema. NEUROLOGICAL: Awake and alert. Follows simple command. MEDICATIONS: He is on Advair 500/50 one puff twice a day, Celexa 20 mg daily, trazodone 100 mg at bedtime, folic acid 1 mg daily, Glucophage 1000 mg twice a day, glipizide 10 mg daily, insulin coverage, Levemir 40 units subcu at bedtime, Maalox p.r.n. basis, mag oxide 400 mg twice a day, milk of magnesia 30 mL daily p.r.n., gabapentin 600 mg three times a day, Protonix 40 mg daily, Seroquel 300 mg at bedtime, IV fluid normal saline 100 mL per hour, Sonata 10 mg at bedtime, Tenormin 50 mg daily, multivitamins daily, Tylenol p.r.n., thiamine 100 mg daily, Zestril 2.5 mg daily. LABORATORY DATA: Reviewed. Blood sugar this evening was 182. IMPRESSION AND PLAN: Schizoaffective disorder, chronic obstructive lung disease, sleep apnea syndrome, morbid obesity, insomnia. Pulmonary point of view, doing well. Continue bronchodilator. Encourage continuous positive airway pressure use. Careful with sedation. Fall precaution. Gastric prophylaxis. Thank you and we will follow with you. Braden Corley MD
[2018-05-13] MEDS: Fluticasone-Salmeterol 500-50mcg Diskus INH SCH ×2 (06:33→18:15)
[2018-05-13 07:53] LABS: EOS # 0.1 (0.0-0.7); EOS % 1.3 % (1.5-5.0); GRAN # 3.38 (1.4-6.5); GRAN % 55.1 % (50.0-68.0); HEMOGLOBIN 14.1 g/dL (14.0-18.0); LYMPH # 2.3 (1.2-3.4); LYMPH % 36.6 % (22.0-35.0); MEAN CELL VOLUME 91.2 fl (80.0-105.0); MEAN CORPUSCULAR HEMOGLOBIN 30.3 pg (25.0-35.0); MEAN CORPUSCULAR HGB CONC 33.3 g/dl (31.0-37.0); MEAN PLATELET VOLUME 9.5 fl (7.0-11.0); MONO # 0.4 (0.1-0.6); RBC 4.65 10^6/uL (3.5-6.1); RED CELL DISTRIBUTION WIDTH 14.1 % (11.5-14.5); WHITE BLOOD COUNT 6.1 10^3/uL (4.5-11.0)
[2018-05-13 08:16] LABS: ALB/GLOB RATIO 1.6 (1.1-1.8); ALBUMIN 4.2 g/dL (3.0-4.8); ALT/SGPT 80 U/L (7-56); AST/SGOT 40 U/L (17-59); BLOOD UREA NITROGEN 16 mg/dL (7-21); CALCIUM 9.6 mg/dL (8.4-10.5); GFR NON-AFRICAN AMERICAN > 60
[2018-05-13] MEDS: Insulin Reg-LOW-Coverage SC SCH ×4 (08:50→21:43)
[2018-05-13] MEDS: Pantoprazole 40 mg EC Tab PO SCH (08:52)
[2018-05-13] MEDS: Magnesium Oxide 400 mg Tab UD PO SCH ×2 (08:52→16:19)
[2018-05-13] MEDS: Multivitamin Therapeutic Tab PO SCH (08:52)
[2018-05-13] MEDS ORDERED: Magnesium Citrate Oral SOL (300 ml) PO ONE (08:57)
--- NOTE | 2018-05-13 12:07 | PN ---
DATE: 05/13/2018 LOCATION: The patient is in the Behavioral Care Unit at [facility], room 518, bed 1. SUBJECTIVE: The patient is a 52-year-old white man. The patient was admitted with depression and has been treated with ECT couple of times. The patient has a medical history of diabetes, hypertension, chronic lung disease, and alcoholism. PHYSICAL EXAMINATION: VITAL SIGNS: This morning, his pulse is 71, blood pressure 100/62, respirations are 20, and O2 stat is 98% on room air. HEENT: The patient's head is normocephalic. NECK: Thyroid not enlarged. JVP is flat. LUNGS: Trachea is central. Breath sounds are vesicular. No adventitious sounds. HEART: Normal sinus rhythm. S1, S2 present. No murmurs. ABDOMEN: Soft. Liver and spleen not palpable. There is distention of the abdomen. No ascites. CENTRAL NERVOUS SYSTEM: Cranial nerves are intact. Motor and sensory functions clinically okay, but the patient has a history of peripheral neuritis. MEDICATIONS: The patient is on Advair twice a day. The patient is on Celexa, Desyrel, folic acid, Glucophage, glipizide, insulin coverage. The patient is on magnesium oxide, gabapentin, pantoprazole, Seroquel. The patient is also getting Sonata for sleep 10 mg at night. LABORATORY DATA: The patient's blood sugar is 182. His CBC is without change. ASSESSMENT AND PLAN: The patient's condition is clinically stable, improving on clinical status. We will continue current management. Follow up with the psych floor. Kenyon Decker MD
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
[2018-05-13] MEDS: Insulin Detemir 100 units/ml Vial (Levemir) SC SCH (21:32)
--- NOTE | 2018-05-13 22:27 | PN ---
DATE: 05/13/2018 PULMONARY PROGRESS NOTE REFERRING PHYSICIAN: Shanon Lazo MD. SUBJECTIVE: He is out of bed to chair. Night was unremarkable. Got some better sleep last night. No headache. No rhinitis. No nausea. No vomiting, diarrhea, leg pain, leg swelling. OBJECTIVE: GENERAL: In no acute distress. VITAL SIGNS: Temperature is 98, heart rate is 71, respiratory rate is 20, blood pressure 100/62. HEENT: Moist mucous membrane. Crowded airway. Mallampati score is 4. NECK: Supple. No JVD. LUNGS: Have a fair airflow with few rhonchi. HEART: S1 and S2. ABDOMEN: Soft, nontender. No organomegaly. EXTREMITIES: There is no edema. NEUROLOGICAL: Awake, alert. Follows simple command. MEDICATIONS: He is on Advair 500/50 one puff twice a day, Celexa 20 mg daily, trazodone 200 mg at bedtime, folic acid 1 mg daily, metformin 1000 mg twice a day, glipizide 10 mg daily, insulin coverage, Levemir 40 units subcu at bedtime, magnesium oxide 400 mg twice a day, milk of magnesia 30 mL daily, gabapentin 600 mg three times a day, Protonix 40 mg daily, Seroquel 300 mg at bedtime, IV fluid normal saline 100 mL per hour, Sonata 10 mg at bedtime, Tenormin 50 mg daily, multivitamins daily, Tylenol p.r.n., Ventolin HFA every 6 hours p.r.n., thiamine 100 mg daily, Zestril 2.5 mg daily. LABORATORY DATA: Shows hemoglobin 14.1, hematocrit 42.4, WBC 6.1, platelet is 260. Sodium 140, potassium 4.1, chloride 101, bicarbonate 30, BUN 16, creatinine 0.9, glucose 148, calcium 9.6, AST 40, ALT 80, alk phos is 63, albumin is 4.2. IMPRESSION AND PLAN: Schizoaffective disorder, chronic obstructive lung disease, sleep apnea syndrome, morbid obesity, insomnia. Pulmonary point of view, doing well. Continue bronchodilator. Encourage continuous positive airway pressure use at night and careful with sedation. Fall precaution. Urged the patient to stop smoking. Outpatient PFT. Thank you and we will follow with you. Braden Corley MD [facility] # [id number]
[2018-05-14] MEDS: Fluticasone-Salmeterol 500-50mcg Diskus INH SCH (06:54)
[2018-05-14] MEDS: Insulin Reg-LOW-Coverage SC SCH ×2 (07:30→13:30)
--- NOTE | 2018-05-14 08:36 | PN ---
DATE: 05/14/2018 SUBJECTIVE: He is a 52-year-old male. He is in room 518, bed 1 behavioral care unit. The patient was admitted with depression. He has had a couple of ECTs and the patient's past medical history significant that he is being treated for hypertension. The patient has history of diabetes, chronic lung disease and also alcoholism. The patient is seen this morning. He is lying down, resting. He says that he is going to get a treatment here and then he will be going home. PHYSICAL EXAMINATION: VITAL SIGNS: The pulse is 64, blood pressure 110/85, respirations are 20, the patient's temperature 98.4. HEENT: Head is normocephalic. LUNGS: Trachea central. Breath sounds are vesicular. No adventitious sounds heard. HEART: Normal sinus rhythm. S1 and S2 present. ABDOMEN: Soft, obesity present. 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 MEDICATIONS: The patient's list of medications, the patient is on Advair 1 puff twice a day. The patient is also getting Celexa, Desyrel, folic acid, metformin, Glucotrol, insulin coverage for his sugar. The patient has magnesium oxide 400 mg b.i.d., gabapentin, pantoprazole, Seroquel, Sonata, atenolol which is Tenormin 50 mg daily. LABORATORY DATA: The patient's lab work, the recent CBC, he has not much change. Chemistry is not posted. All the chemistry is posted done on 05/13/2018 that is yesterday is ALT is 80, AST is 40. ASSESSMENT AND PLAN: The patient has history of alcoholism, but enzyme elevation might be due to the history of alcohol use. He is clinically stable. The patient will have his treatment today and then he will be discharged to follow up with his primary care physician. He will be given a prescription for Advair 250/50 b.i.d. He says he has all his other medications at home. Kenyon Decker MD
[2018-05-14] MEDS ORDERED: Propofol 10 mg/ml Inj (20 ML) ONE (11:06)
[2018-05-14] MEDS ORDERED: Succinylcholine 200 mg/10 ml Inj IV ONE (11:06)
[2018-05-14 11:10] VITALS: TEMP 98.2
[2018-05-14] MEDS ORDERED: Sodium Chloride 0.9% 1,000 ML IV SCH (11:30)
[2018-05-14 13:02] VITALS: RESP 16; O2SAT 100
[2018-05-14] MEDS: Pantoprazole 40 mg EC Tab PO SCH (13:23)
[2018-05-14] MEDS: Multivitamin Therapeutic Tab PO SCH (13:23)
[2018-05-14] MEDS: Magnesium Oxide 400 mg Tab UD PO SCH (13:23)
[2018-05-14 13:28] VITALS: BP 141/88; PULSE 88
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
== END 2018-05-14 15:51 | disposition home or self-care (01) | DRG 885 ==
LOC: ED 08:56 → ERH 11:40 → PSYC 14:15
PROVIDERS: ADMIT Psychiatry & Neurology Psychiatry; ATTEND Psychiatry & Neurology Psychiatry
PROC: GZB4ZZZ Other Electroconvulsive Therapy (ICD-10-PCS; 2018-05-05)
PROC: GZB4ZZZ Other Electroconvulsive Therapy (ICD-10-PCS; 2018-05-07)
PROC: GZB4ZZZ Other Electroconvulsive Therapy (ICD-10-PCS; 2018-05-12)
PROC: GZB4ZZZ Other Electroconvulsive Therapy (ICD-10-PCS; principal; 2018-05-14 10:45)
DX: F25.0 Schizoaffective disorder, bipolar type (principal); F31.60 Bipolar disorder, current episode mixed, unspecified; F41.9 Anxiety disorder, unspecified; E11.65 Type 2 diabetes mellitus with hyperglycemia; E66.01 Morbid (severe) obesity due to excess calories; F10.20 Alcohol dependence, uncomplicated; F17.200 Nicotine dependence, unspecified, uncomplicated; G47.00 Insomnia, unspecified; G47.33 Obstructive sleep apnea (adult) (pediatric); I10 Essential (primary) hypertension; J44.9 Chronic obstructive pulmonary disease, unspecified; K21.9 Gastro-esophageal reflux disease without esophagitis; K59.00 Constipation, unspecified; R56.9 Unspecified convulsions; Y90.6 Blood alcohol level of 120-199 mg/100 ml; Z79.4 Long term (current) use of insulin; Z79.899 Other long term (current) drug therapy